=== PATIENT | female | born 1980 | race Caucasian/White ===

== ENCOUNTER 2018-03-19 10:07 | Emergency (ER) | payer OTHER ==
[2018-03-19 10:14] VITALS: BP 129/67; PULSE 108; RESP 20; TEMP 98.8
--- NOTE | 2018-03-19 10:48 | ED ---
General Adult HPI - General Chief complaint: Skin/Abscess/Foreign Body Stated complaint: Female Time Seen by Provider: 03/19/18 10:27 Source: patient, family, RN notes reviewed Mode of arrival: ambulatory Limitations: no limitations - History of Present Illness Initial comments: Patient is a pleasant 37-year-old female presenting to the emergency department with concern for possible abscess. Patient states she did see her doctor 2 days ago and was told it was hemorrhoids and prescribed antibiotics. Patient was prescribed Augmentin however has not had it filled yet. Patient states she is not convinced it is hemorrhoids causing her pain. Discomfort increases with movement. Patient believes she had a fever 2 days ago. No history of similar symptoms previously. - Related Data Previous Rx's Medication Instructions Recorded Acetaminophen-Codeine 300-30mg 2 each PO Q4H PRN #15 tablet 03/19/18 [Tylenol #3] Clindamycin HCl 300 mg PO QID #40 cap 03/19/18 Allergies Allergy/AdvReac Type Severity Reaction Status Date / Time ibuprofen [From Motrin] Allergy Anaphylaxis Verified 03/19/18 10:39 latex Allergy Unknown Verified 03/19/18 10:14 Sulfa (Sulfonamide Allergy Unknown Verified 03/19/18 10:14 Antibiotics) Review of Systems ROS Statement: Those systems with pertinent positive or pertinent negative responses have been documented in the HPI. ROS Other: All systems not noted in ROS Statement are negative. Constitutional: Reports: fever, chills Eyes: Denies: eye pain ENT: Denies: ear pain Respiratory: Denies: cough Cardiovascular: Denies: chest pain Endocrine: Denies: fatigue Gastrointestinal: Denies: abdominal pain Genitourinary: Denies: dysuria Musculoskeletal: Denies: back pain Skin: Denies: pruritus Past Medical History Additional Past Medical History / Comment(s): Hepatitis C History of Any Multi-Drug Resistant Organisms: None Reported Past Surgical History: Cholecystectomy Past Psychological History: No Psychological Hx Reported Smoking Status: Former smoker Past Alcohol Use History: Occasional Past Drug Use History: None Reported General Exam Limitations: no limitations General appearance: alert, in no apparent distress Head exam: Present: atraumatic Eye exam: Present: normal appearance Neck exam: Present: normal inspection Respiratory exam: Present: normal lung sounds bilaterally Cardiovascular Exam: Present: regular rate, normal rhythm GI/Abdominal exam: Present: soft. Absent: tenderness External exam: Present: other (Left lateral inferior to the labia with minimal fullness. There is tenderness. No significant erythema. RN Dilia is present. ) Neurological exam: Present: alert Psychiatric exam: Present: normal affect, normal mood Skin exam: Present: normal color. Absent: rash Course Vital Signs 03/19/18 10:11 Temperature 98.8 F Pulse Rate 108 H Respiratory 20 Rate Blood Pressure 129/67 O2 Sat by Pulse 98 Oximetry Medical Decision Making - Medical Decision Making Area of concern is likely early Bartholin's cyst or abscess. Area is not large enough to benefit from I&D at this time. Patient is advised of this and need for drainage if symptoms get worse or increased swelling. Patient has not started Augmentin. It is felt with possibility of MRSA patient should likely be on Bactrim or clindamycin. Patient however does have a sulfa ALLERGY. Patient does request pain medication. Disposition Clinical Impression: Bartholin's gland abscess Disposition: HOME SELF-CARE Condition: Stable Instructions: Abscess (ED), Bartholin Cyst (ED) Additional Instructions: Please follow-up with primary care physician or PRE ALGEBRA TEACHER in the next day or 2 for recheck. Return for fevers, redness, increased swelling, increased pain, worsening or changing symptoms or other concerns. Prescriptions: Acetaminophen-Codeine 300-30mg [Tylenol #3] 2 each PO Q4H PRN #15 tablet PRN Reason: Pain Clindamycin HCl 300 mg PO QID #40 cap Is patient prescribed a controlled substance at d/c from ED?: Yes When asked, does pt state using other controlled substances?: No Referrals: Raudel Cox MD [Primary Care Provider] - 1-2 days Time of Disposition: 10:51
== END 2018-03-19 11:01 | disposition home or self-care (01) ==
LOC: EC 10:07
DX: N75.1 Abscess of Bartholin's gland (principal); Z87.891 Personal history of nicotine dependence; Z88.6 Allergy status to analgesic agent; Z91.040 Latex allergy status; Z88.2 Allergy status to sulfonamides
CPT/HCPCS: 99283

== ENCOUNTER 2018-03-24 14:11 | Emergency (ER) | payer OTHER ==
[2018-03-24 14:22] VITALS: RESP 18; TEMP 99
[2018-03-24] MEDS ORDERED: MORPHINE SULFATE 4 MG/ML SYRINGE IV STA (14:43)
[2018-03-24] MEDS ORDERED: SODIUM CHLORIDE 0.9% 1,000 ML IV SCH (14:45)
[2018-03-24] MEDS ORDERED: ceFAZolin 1,000 MG in DEXTROSE/WATER 1 50ML.BAG IVPB STA (14:45)
[2018-03-24] MEDS ORDERED: SODIUM CHLORIDE 0.9% 500 ML IV ONE (14:45)
--- NOTE | 2018-03-24 14:51 | ED ---
Skin/Abscess/FB HPI - General Chief complaint: Skin/Abscess/Foreign Body Stated complaint: Cyst Time Seen by Provider: 03/24/18 14:33 Source: patient Mode of arrival: ambulatory Limitations: no limitations - History of Present Illness Initial comments: 37 years old female living about 2. Rectal area ongoing for about a week now, swollen, its tender, it's painful she is unable to send her to even ambulate with the excruciating pain. She has been running low-grade fever as well denies any frequency urgency dysuria no vaginal discharge. Review of system is unremarkable otherwise - Related Data Home Medications Medication Instructions Recorded Confirmed Acetaminophen-Codeine 300-30mg 2 tab PO Q4H PRN 03/24/18 03/24/18 [Tylenol #3] Previous Rx's Medication Instructions Recorded Clindamycin HCl 300 mg PO QID #40 cap 03/19/18 Amoxicillin/Potassium Clav 1 tab PO Q12HR #20 tab 03/24/18 [Augmentin 875-125 Tablet] HYDROcodone/APAP 5-325MG [[place] 1 tab PO Q6HR PRN 3 Days #12 tab 03/24/18 5-325] Lactulose [Cephulac] 30 gm PO BID #300 ml 03/24/18 Allergies Allergy/AdvReac Type Severity Reaction Status Date / Time ibuprofen [From Motrin] Allergy Anaphylaxis Verified 03/24/18 14:39 latex Allergy Unknown Verified 03/24/18 14:39 Sulfa (Sulfonamide Allergy Unknown Verified 03/24/18 14:39 Antibiotics) Review of Systems ROS Statement: Those systems with pertinent positive or pertinent negative responses have been documented in the HPI. ROS Other: All systems not noted in ROS Statement are negative. Past Medical History Additional Past Medical History / Comment(s): Hepatitis C History of Any Multi-Drug Resistant Organisms: None Reported Past Surgical History: Cholecystectomy Past Psychological History: No Psychological Hx Reported Smoking Status: Former smoker Past Alcohol Use History: Occasional Past Drug Use History: None Reported General Exam - General Exam Comments Initial Comments: General: The patient is awake and alert, in moderate distress because of the pain Skin: Skin is warm warm, erythematous, indurated and very tender, is a perirectal abscess, Eye: Pupils are equal, round and reactive to light, extra-ocular movements are intact; there is normal conjunctiva bilaterally. Ears, nose, mouth and throat: There are moist mucous membranes and no oral lesions. Neck: The neck is supple, there is no tenderness or JVD. Cardiovascular: There is a regular rate and rhythm. No murmur, rub or gallop is appreciated. Respiratory: To auscultation bilateral, no wheezing no rhonchi no distress respiratory moore noticed Gastrointestinal: Soft, non-distended, non-tender abdomen without masses or organomegaly noted. There is no rebound or guarding present. Bowel sounds are unremarkable. Back: There is no tenderness to palpation in the midline. There is no obvious deformity. Musculoskeletal: Normal ROM, no tenderness, There is no pedal edema. There is no calf tenderness or swelling. No cords were appreciated. Neurological: CN II-XII intact, Cranial nerves III through XII are intact. There are no obvious motor or sensory deficits. Coordination appears grossly intact. Speech is normal. Psychiatric: Cooperative, appropriate mood & affect, normal judgment. Limitations: no limitations Course Vital Signs 03/24/18 14:20 Temperature 99.0 F Pulse Rate 130 H Respiratory 18 Rate Blood Pressure 110/86 O2 Sat by Pulse 98 Oximetry Reassessed at 1600, CBC is normal heart rate has dropped down to 75 she still a lot of pain unfortunately can't use any anti-inflammatories and she is ALLERGIC to Motrin she be given some Tylenol 1 g by mouth now along with the morphine we did aspirate about 10 mL of pus should be gone home on Augmentin 1 g twice daily for next 10 days she be referred to Dr. horn for follow-up in case she needs more extensive incision and drainage of the perirectal abscess Medical Decision Making - Lab Data Result diagrams: 03/24/18 15:23 03/24/18 15:23 Lab Results 03/24/18 03/24/18 Range/Units 15:23 15:23 WBC 8.8 (3.8-10.6) k/uL RBC 4.06 (3.80-5.40) m/uL Hgb 13.6 (11.4-16.0) gm/dL Hct 38.6 (34.0-46.0) % MCV 95.0 (80.0-100.0) fL MCH 33.6 (25.0-35.0) pg MCHC 35.3 (31.0-37.0) g/dL RDW 12.9 (11.5-15.5) % Plt Count 383 (150-450) k/uL Neutrophils % 79 % Lymphocytes % 13 % Monocytes % 5 % Eosinophils % 2 % Basophils % 0 % Neutrophils # 7.0 (1.3-7.7) k/uL Lymphocytes # 1.1 (1.0-4.8) k/uL Monocytes # 0.5 (0-1.0) k/uL Eosinophils # 0.2 (0-0.7) k/uL Basophils # 0.0 (0-0.2) k/uL Sodium 143 (137-145) mmol/L Potassium 4.5 (3.5-5.1) mmol/L Chloride 105 (98-107) mmol/L Carbon Dioxide 22 (22-30) mmol/L Anion Gap 16 mmol/L BUN 10 (7-17) mg/dL Creatinine 0.63 (0.52-1.04) mg/dL Est GFR (CKD-EPI)AfAm >90 (>60 ml/min/1.73 sqM) Est GFR (CKD-EPI)NonAf >90 (>60 ml/min/1.73 sqM) Glucose 85 (74-99) mg/dL Calcium 9.3 (8.4-10.2) mg/dL Total Bilirubin 0.9 (0.2-1.3) mg/dL AST 53 H (14-36) U/L ALT 58 H (9-52) U/L Alkaline Phosphatase 83 (38-126) U/L Total Protein 7.0 (6.3-8.2) g/dL Albumin 4.0 (3.5-5.0) g/dL Disposition Clinical Impression: Loulou-rectal abscess Disposition: HOME SELF-CARE Condition: Good Instructions: Abscess (ED) Prescriptions: Amoxicillin/Potassium Clav [Augmentin 875-125 Tablet] 1 tab PO Q12HR #20 tab HYDROcodone/APAP 5-325MG [[place] 5-325] 1 tab PO Q6HR PRN 3 Days #12 tab PRN Reason: Pain Lactulose [Cephulac] 30 gm PO BID #300 ml Is patient prescribed a controlled substance at d/c from ED?: Yes When asked, does pt state using other controlled substances?: No If prescribed controlled substance>3 days was MAPS reviewed?: No If opioid is for acute pain is fill amount 7 days or less?: No If Rx opioid, was Start Talking consent form obtained?: No Referrals: Raudel Cox MD [Primary Care Provider] - 1-2 days
[2018-03-24 15:41] LABS: ALT 58 U/L (9-52); AST 53 U/L (14-36); Alkaline Phosphatase 83 U/L (38-126); Anion Gap 16 mmol/L; Blood Urea Nitrogen 10 mg/dL (7-17); Calcium 9.3 mg/dL (8.4-10.2); Carbon Dioxide 22 mmol/L (22-30); Chloride 105 mmol/L (98-107); Glucose 85 mg/dL (74-99); Potassium 4.5 mmol/L (3.5-5.1); Sodium 143 mmol/L (137-145); Total Bilirubin 0.9 mg/dL (0.2-1.3)
[2018-03-24 15:45] LABS: Basophils % (A) 0 %; Eosinophils # (A) 0.2 k/uL (0-0.7); Eosinophils % (A) 2 %; HCT 38.6 % (34.0-46.0); HGB 13.6 gm/dL (11.4-16.0); Lymphocytes # (A) 1.1 k/uL (1.0-4.8); Lymphocytes % (A) 13 %; MCH 33.6 pg (25.0-35.0); MCHC 35.3 g/dL (31.0-37.0); Mean Platelet Volume 6.6; Monocytes # (A) 0.5 k/uL (0-1.0); Monocytes % (A) 5 %; Neutrophils % (A) 79 %; Platelet Count 383 k/uL (150-450); RBC 4.06 m/uL (3.80-5.40); RDW 12.9 % (11.5-15.5); WBC 8.8 k/uL (3.8-10.6)
[2018-03-24] MEDS ORDERED: ACETAMINOPHEN TAB 500 MG TAB PO STA (16:08)
[2018-03-24 16:10] VITALS: BP 125/60; PULSE 74
[2018-03-24] MEDS ORDERED: MORPHINE SULFATE 4 MG/ML SYRINGE IVP STA (16:10)
--- NOTE | 2018-03-25 02:35 | CDI ---
Documentation Clarification OP Dear Jb LOVE MD Please do addendum to ED report for Aspiration procedure of rectal abscess. Thank you, Juanita Joyner Refinery Superintendent If you have any question, Please contact farm operations manager at [phone] mtdD
[2018-03-25 20:50] LABS: Hepatitis B Core IgM Non-Reactive (Non-Reactive)
== END 2018-03-24 16:46 | disposition home or self-care (01) ==
LOC: EC 14:11
DX: K61.1 Rectal abscess (principal); Z86.19 Personal history of other infectious and parasitic diseases; Z87.891 Personal history of nicotine dependence; Z88.6 Allergy status to analgesic agent; Z88.2 Allergy status to sulfonamides; Z91.040 Latex allergy status
CPT/HCPCS: 99283; 10160; 96365; 96375; 96376; 96361; 36415; 80053; 80074; 85025; 87070; 87205; 87077; 87186; J2270; J0690

== ENCOUNTER 2018-03-25 20:18 | Inpatient (IN) | payer OTHER ==
[2018-03-25] MEDS ORDERED: metroNIDAZOLE-NS PMX 500 MG in SALINE 1 100ML.BAG IVPB STA (21:58)
[2018-03-25] MEDS ORDERED: LEVOFLOXACIN 750MG-D5W PMX 750 MG in DEXTROSE/WATER 1 150ML.BAG IVPB STA (21:58)
[2018-03-25] MEDS ORDERED: VANCOMYCIN IV PER PHARMACY 1 EACH MISC MISCELLANE PRN (21:58)
[2018-03-25 22:06] LABS: Basophils % (A) 0 %; Eosinophils # (A) 0.2 k/uL (0-0.7); Eosinophils % (A) 1 %; HGB 13.3 gm/dL (11.4-16.0); Lymphocytes # (A) 0.8 k/uL (1.0-4.8); Lymphocytes % (A) 6 %; MCH 32.8 pg (25.0-35.0); MCHC 34.9 g/dL (31.0-37.0); MCV 94.1 fL (80.0-100.0); Mean Platelet Volume 6.6; Monocytes # (A) 0.5 k/uL (0-1.0); Monocytes % (A) 4 %; Neutrophils # (A) 11.8 k/uL (1.3-7.7); Neutrophils % (A) 88 %; Platelet Count 364 k/uL (150-450); RBC 4.04 m/uL (3.80-5.40); WBC 13.4 k/uL (3.8-10.6)
[2018-03-25] MEDS ORDERED: VANCOMYCIN 1,750 MG in SODIUM CHLORIDE 0.9% 250 ML IVPB STA (22:16)
[2018-03-25 22:18] LABS: ALT 59 U/L (9-52); AST 43 U/L (14-36); Albumin 4.1 g/dL (3.5-5.0); Alkaline Phosphatase 84 U/L (38-126); Anion Gap 16 mmol/L; Blood Urea Nitrogen 9 mg/dL (7-17); Calcium 9.4 mg/dL (8.4-10.2); Carbon Dioxide 22 mmol/L (22-30); Chloride 104 mmol/L (98-107); Glucose 97 mg/dL (74-99); Potassium 4.4 mmol/L (3.5-5.1); Sodium 142 mmol/L (137-145); Total Bilirubin 1.1 mg/dL (0.2-1.3); Total Protein 7.3 g/dL (6.3-8.2)
[2018-03-25] MEDS ORDERED: MORPHINE SULFATE 4 MG/ML SYRINGE IVP STA (22:18)
[2018-03-25] MEDS ORDERED: RX INFO: IV CONTRAST WAS GIVEN 1 EACH MISC MISCELLANE PRN (22:18)
--- NOTE | 2018-03-25 22:24 | ED ---
Skin/Abscess/FB HPI - General Chief complaint: Skin/Abscess/Foreign Body Stated complaint: Abscess Time Seen by Provider: 03/25/18 21:38 Source: patient, RN notes reviewed Mode of arrival: ambulatory Limitations: no limitations - History of Present Illness Initial comments: This is a 37-year-old female who presents to the emergency department with chief complaint of abscess. Patient states that she was evaluated yesterday here at the emergency department for an abscess in her genital area. She states that it was drained by Dr. Francois. She states she was diagnosed with a perianal abscess. She states that she was started on Augmentin antibiotic and has taken 3 doses so far. She states that since yesterday the abscess has grown 3 times in size. She states that she has developed fevers, chills and nausea. She states that the pain is intense. She states that she is hoping to be admitted because she has been evaluated for times by different providers and the abscess continues to progress in size and pain. Denies chest pain or shortness of breath, abdominal pain, diarrhea or constipation. - Related Data Home Medications Medication Instructions Recorded Confirmed Acetaminophen-Codeine 300-30mg 2 tab PO Q4H PRN 03/24/18 03/25/18 [Tylenol #3] Lactulose [Cephulac] 30 gm PO BID 03/25/18 03/25/18 Previous Rx's Medication Instructions Recorded Amoxicillin/Potassium Clav 1 tab PO Q12HR #20 tab 03/24/18 [Augmentin 875-125 Tablet] HYDROcodone/APAP 5-325MG [[place] 1 tab PO Q6HR PRN 3 Days #12 tab 03/24/18 5-325] Allergies Allergy/AdvReac Type Severity Reaction Status Date / Time ibuprofen [From Motrin] Allergy Anaphylaxis Verified 03/25/18 22:13 latex Allergy Unknown Verified 03/25/18 22:13 Sulfa (Sulfonamide Allergy Unknown Verified 03/25/18 22:13 Antibiotics) Review of Systems ROS Statement: Those systems with pertinent positive or pertinent negative responses have been documented in the HPI. ROS Other: All systems not noted in ROS Statement are negative. Past Medical History Past Medical History: No Reported History Additional Past Medical History / Comment(s): Hepatitis C History of Any Multi-Drug Resistant Organisms: None Reported Past Surgical History: Cholecystectomy Past Psychological History: No Psychological Hx Reported Smoking Status: Former smoker Past Alcohol Use History: Occasional Past Drug Use History: None Reported General Exam - General Exam Comments Initial Comments: General: Awake and alert, well-developed; in no apparent distress. HEENT: Head atraumatic, normocephalic. Pupils are equal, round and reactive to light. Extraocular movements intact. Oropharynx moist without erythema or exudate. Neck: Supple. Normal ROM. Cardiovascular: Regular rate and rhythm. No murmurs, rubs or gallops. Chest symmetrical. Respiratory: Lungs clear to auscultation bilaterally. No wheezes, rales or rhonchi. Normal respiratory effort with no use of accessory muscles. Abdomen: Soft, non-tender, non-distended. No rigidity, rebound or guarding. Normal bowel sounds in all 4 quadrants. Musculoskeletal: Normal ROM, no tenderness bilateral upper and lower extremities. Skin: Nathalie, warm and dry without rashes or lesions. Neurological: Alert and oriented x3. CN II-XII grossly intact. Speech is fluent and answers are appropriate. No focal neuro deficits. Psychiatric: Normal mood and affect. No overt signs of depression or anxiety noted. Limitations: no limitations Rectal exam: Present: other (area of erythema and induration extending from left labia majora to anus. exquisitely tender on palpation. ) Course Vital Signs 03/25/18 20:27 Temperature 101.4 F H Pulse Rate 140 H Respiratory 20 Rate Blood Pressure 111/67 O2 Sat by Pulse 100 Oximetry Medical Decision Making - Medical Decision Making This is a 37-year-old female who presents to the emergency department with chief complaint of abscess. Patient had a perianal abscess drained yesterday here in the emergency department. Since that time she has developed a high- grade fever, tachycardia, fevers, chills and nausea. On presentation, patient was afebrile and tachycardic. On physical examination, there is a large area of induration, erythema and tenderness left labia majora/anal region. Patient started on Levaquin, Vanco and Flagyl. CBC revealed a white count of 13.4 with a left shift at 11.8. Computed tomography scan did reveal a complex fluid collection at the floor of the pelvis. Patient will be admitted to Dr. Hernandez for perianal abscess. Patient was made aware of findings and plan. She is in agreement for admission. All questions answered. - Lab Data Result diagrams: 03/25/18 21:57 03/25/18 21:57 Lab Results 03/25/18 03/25/18 03/25/18 Range/Units 21:57 21:57 21:57 WBC 13.4 H (3.8-10.6) k/uL RBC 4.04 (3.80-5.40) m/uL Hgb 13.3 (11.4-16.0) gm/dL Hct 38.0 (34.0-46.0) % MCV 94.1 (80.0-100.0) fL MCH 32.8 (25.0-35.0) pg MCHC 34.9 (31.0-37.0) g/dL RDW 13.0 (11.5-15.5) % Plt Count 364 (150-450) k/uL Neutrophils % 88 % Lymphocytes % 6 % Monocytes % 4 % Eosinophils % 1 % Basophils % 0 % Neutrophils # 11.8 H (1.3-7.7) k/uL Lymphocytes # 0.8 L (1.0-4.8) k/uL Monocytes # 0.5 (0-1.0) k/uL Eosinophils # 0.2 (0-0.7) k/uL Basophils # 0.0 (0-0.2) k/uL Sodium 142 (137-145) mmol/L Potassium 4.4 (3.5-5.1) mmol/L Chloride 104 (98-107) mmol/L Carbon Dioxide 22 (22-30) mmol/L Anion Gap 16 mmol/L BUN 9 (7-17) mg/dL Creatinine 0.70 (0.52-1.04) mg/dL Est GFR (CKD-EPI)AfAm >90 (>60 ml/min/1.73 sqM) Est GFR (CKD-EPI)NonAf >90 (>60 ml/min/1.73 sqM) Glucose 97 (74-99) mg/dL Plasma Lactic Acid Deric 0.8 (0.7-2.0) mmol/L Calcium 9.4 (8.4-10.2) mg/dL Total Bilirubin 1.1 (0.2-1.3) mg/dL AST 43 H (14-36) U/L ALT 59 H (9-52) U/L Alkaline Phosphatase 84 (38-126) U/L Total Protein 7.3 (6.3-8.2) g/dL Albumin 4.1 (3.5-5.0) g/dL - Radiology Data Radiology results: report reviewed CT abdomen and pelvis with contrast impression: Complex fluid collection at the floor of the pelvis on the left side consistent with perianal abscess or perivaginal abscess. This is seen in the subcutaneous tissues. This is below the urogenital diaphragm. Disposition Clinical Impression: Perianal abscess Disposition: ADMITTED IP TO THIS HOSP Condition: Stable Is patient prescribed a controlled substance at d/c from ED?: No Referrals: Raudel Cox MD [Primary Care Provider] - 1-2 days Time of Disposition: 23:24
--- NOTE | 2018-03-25 23:12 | CT ---
EXAMINATION TYPE: CT abdomen pelvis w con DATE OF EXAM: 03/25/2018 COMPARISON: 04/10/2011 HISTORY: Evaluate for perirectal abscess. CT DLP: 1713.2 mGycm Automated exposure control for dose reduction was used. TECHNIQUE: Helical acquisition of images was performed from the lung bases through the pelvis. CONTRAST: Performed without Oral Contrast and with IV Contrast, patient injected with 100 mL of Isovue 300. FINDINGS: The lung bases are clear. There is no pleural effusion. Liver spleen pancreas appear normal. There ar e clips from cholecystectomy. There is no adrenal mass. Kidneys show satisfactory contrast opacificat ion. There is no hydronephrosis. Ureters are not dilated. There is no retroperitoneal adenopathy. The re is no ascites. I see no intestinal wall thickening. There are no dilated loops. Bladder distends smoothly. Uterus is retroverted. I see no bony destructive process. There is no sign of free air. There is no sign of ap pendicitis. Appendix appears normal. Images at the floor of the pelvis show a 5 x 3 cm oval-shaped complex fluid collection on the left si de and inferior to the anus consistent with perianal abscess. There is a small air bubble anteriorly. IMPRESSION: COMPLEX FLUID COLLECTION AT THE FLOOR THE PELVIS ON THE LEFT SIDE CONSISTENT WITH PERIANAL ABSCESS OR PERIVAGINAL ABSCESS. THIS IS SEEN IN THE SUBCUTANEOUS TISSUES. THIS IS BELOW THE UROGENITAL DIAPHRA GM.
[2018-03-25] MEDS ORDERED: NALOXONE 0.4 MG/ML 1 ML VIAL IV PRN (23:24)
[2018-03-25] MEDS ORDERED: ACETAMINOPHEN TAB 500 MG TAB PO STA (23:41)
[2018-03-26 00:53] VITALS: BMI 37.5
[2018-03-26] MEDS: SODIUM CHLORIDE 0.9% 1,000 ML IV SCH ×2 (01:09→12:56)
[2018-03-26] MEDS: MORPHINE SULFATE 4 MG/ML SYRINGE IV PRN ×4 (03:56→22:01)
[2018-03-26] MEDS: metroNIDAZOLE-NS PMX 500 MG in SALINE 1 100ML.BAG IVPB SCH ×3 (05:34→22:02)
[2018-03-26] MEDS: ONDANSETRON 4 MG/2 ML VIAL IVP PRN (09:29)
[2018-03-26] MEDS: HYDROmorphone 0.5 MG/0.5 ML SYRINGE IVP STA (09:30)
--- NOTE | 2018-03-26 09:38 | P.GSHP ---
History of Present Illness H&P Date: 03/26/18 Chief Complaint: Left perirectal abscess This is a 37-year-old female with a one-week history of left perianal pain. Apparently she is seen in the emergency room's at [facility] 3 times over the last week. The patient states her pain worsened and she had increased swelling. She's been admitted to the hospital for treatment of a left perirectal abscess. Past Medical History Past Medical History: No Reported History Additional Past Medical History / Comment(s): Hepatitis C History of Any Multi-Drug Resistant Organisms: None Reported Past Surgical History: Section, Cholecystectomy Past Anesthesia/Blood Transfusion Reactions: No Reported Reaction Past Psychological History: No Psychological Hx Reported Smoking Status: Former smoker Past Alcohol Use History: Occasional Past Drug Use History: None Reported - Past Family History Father Family Medical History: No Reported History Medications and Allergies Home Medications Medication Instructions Recorded Confirmed Type Acetaminophen-Codeine 300-30mg 2 tab PO Q4H PRN 03/24/18 03/25/18 History [Tylenol #3] Amoxicillin/Potassium Clav 1 tab PO Q12HR #20 tab 03/24/18 03/25/18 Rx [Augmentin 875-125 Tablet] HYDROcodone/APAP 5-325MG [[place] 1 tab PO Q6HR PRN 3 Days #12 tab 03/24/18 Rx 5-325] Lactulose [Cephulac] 30 gm PO BID 03/25/18 03/25/18 History Allergies Allergy/AdvReac Type Severity Reaction Status Date / Time ibuprofen [From Motrin] Allergy Anaphylaxis Verified 03/25/18 22:13 latex Allergy Unknown Verified 03/25/18 22:13 Sulfa (Sulfonamide Allergy Unknown Verified 03/25/18 22:13 Antibiotics) Surgical - Exam Vital Signs Temp Pulse Resp BP Pulse Ox 101.4 F H 140 H 20 111/67 100 03/25/18 20:27 03/25/18 20:27 03/25/18 20:27 03/25/18 20:27 03/25/18 20:27 - General well developed, no distress - Eyes PERRL - ENT normal pinna - Neck no masses - Respiratory normal expansion - Cardiovascular Rhythm: regular - Abdomen Abdomen: soft, non tender - Rectum Left perirectal abscess with induration and swelling Results - Labs 03/25/18 21:57 03/25/18 21:57 Abnormal Lab Results - Last 24 Hours (Table) 03/25/18 03/25/18 Range/Units 21:57 21:57 WBC 13.4 H (3.8-10.6) k/uL Neutrophils # 11.8 H (1.3-7.7) k/uL Lymphocytes # 0.8 L (1.0-4.8) k/uL AST 43 H (14-36) U/L ALT 59 H (9-52) U/L Diabetes panel 03/25/18 Range/Units 21:57 Sodium 142 (137-145) mmol/L Potassium 4.4 (3.5-5.1) mmol/L Chloride 104 (98-107) mmol/L Carbon Dioxide 22 (22-30) mmol/L BUN 9 (7-17) mg/dL Creatinine 0.70 (0.52-1.04) mg/dL Glucose 97 (74-99) mg/dL Calcium 9.4 (8.4-10.2) mg/dL AST 43 H (14-36) U/L ALT 59 H (9-52) U/L Alkaline Phosphatase 84 (38-126) U/L Total Protein 7.3 (6.3-8.2) g/dL Albumin 4.1 (3.5-5.0) g/dL Calcium panel 03/25/18 Range/Units 21:57 Calcium 9.4 (8.4-10.2) mg/dL Albumin 4.1 (3.5-5.0) g/dL Pituitary panel 03/25/18 Range/Units 21:57 Sodium 142 (137-145) mmol/L Potassium 4.4 (3.5-5.1) mmol/L Chloride 104 (98-107) mmol/L Carbon Dioxide 22 (22-30) mmol/L BUN 9 (7-17) mg/dL Creatinine 0.70 (0.52-1.04) mg/dL Glucose 97 (74-99) mg/dL Calcium 9.4 (8.4-10.2) mg/dL Adrenal panel 03/25/18 Range/Units 21:57 Sodium 142 (137-145) mmol/L Potassium 4.4 (3.5-5.1) mmol/L Chloride 104 (98-107) mmol/L Carbon Dioxide 22 (22-30) mmol/L BUN 9 (7-17) mg/dL Creatinine 0.70 (0.52-1.04) mg/dL Glucose 97 (74-99) mg/dL Calcium 9.4 (8.4-10.2) mg/dL Total Bilirubin 1.1 (0.2-1.3) mg/dL AST 43 H (14-36) U/L ALT 59 H (9-52) U/L Alkaline Phosphatase 84 (38-126) U/L Total Protein 7.3 (6.3-8.2) g/dL Albumin 4.1 (3.5-5.0) g/dL Assessment and Plan Assessment: Left perirectal abscess. We'll perform incision and drainage.
[2018-03-26] MEDS: LIDOCAINE 1%-EPI 1:100,000 30 ML VIAL SQ ONE (10:24)
--- NOTE | 2018-03-26 10:27 | P.OP ---
Date of Procedure: 03/26/18 Preoperative Diagnosis: Left perianal abscess Postoperative Diagnosis: Left perianal abscess Procedure(s) Performed: Incision and drainage of left perianal abscess Anesthesia: local Surgeon: Humza Hernandez Pathology: other (Culture) Condition: stable Disposition: floor Description of Procedure: Patient's placed on the bed in the supine position. She was in the frog-leg position. The skin was prepped and draped usual sterile fashion. The area was anesthetized 1% local Xylocaine. Using a 18-gauge needle a small pus cavity was entered. 2 mL of purulent fluid was removed. There was no other pockets of pus aspirated. Patient top procedure well a.
[2018-03-26] MEDS: VANCOMYCIN 1,750 MG in SODIUM CHLORIDE 0.9% 250 ML IVPB SCH (12:55)
[2018-03-26] MEDS: ACETAMINOPHEN TAB 325 MG TAB PO PRN ×2 (14:59→20:36)
[2018-03-26] MEDS ORDERED: Acetaminophen-Codeine 300-30mg TAB PO PRN (18:05)
[2018-03-26] MEDS: PIPERACILLIN-TAZOBACTAM 3.375 GM in DEXTROSE/WATER 1 50ML.BAG IVPB SCH (18:18)
[2018-03-26 21:50] LABS: ALT 47 U/L (9-52); AST 31 U/L (14-36); Albumin 3.6 g/dL (3.5-5.0); Alkaline Phosphatase 72 U/L (38-126); Anion Gap 15 mmol/L; Blood Urea Nitrogen 6 mg/dL (7-17); Carbon Dioxide 22 mmol/L (22-30); Chloride 104 mmol/L (98-107); Glucose 111 mg/dL (74-99); Potassium 3.6 mmol/L (3.5-5.1); Sodium 141 mmol/L (137-145); Total Protein 6.4 g/dL (6.3-8.2)
[2018-03-26] MEDS: HEPARIN SODIUM,PORCINE 5,000 UNIT/ML 1 ML VIAL SQ SCH (22:01)
[2018-03-26] MEDS: LACTULOSE 20 GM/30 ML CUP PO SCH (22:02)
[2018-03-26] MEDS ORDERED: LEVOFLOXACIN 750MG-D5W PMX 750 MG in DEXTROSE/WATER 1 150ML.BAG IVPB SCH (23:00)
[2018-03-27] MEDS: PIPERACILLIN-TAZOBACTAM 3.375 GM in DEXTROSE/WATER 1 50ML.BAG IVPB SCH ×4 (00:36→23:23)
[2018-03-27] MEDS: VANCOMYCIN 1,750 MG in SODIUM CHLORIDE 0.9% 250 ML IVPB SCH ×2 (00:38→13:16)
[2018-03-27] MEDS: MORPHINE SULFATE 4 MG/ML SYRINGE IV PRN ×5 (01:47→20:06)
[2018-03-27] MEDS: SODIUM CHLORIDE 0.9% 1,000 ML IV SCH ×3 (02:25→16:53)
--- NOTE | 2018-03-27 02:52 | CONS ---
CONSULTATION DATE OF SERVICE: 03/26/2018 REASON FOR CONSULTATION: Left perianal abscess. HISTORY OF PRESENT ILLNESS: The patient is a 37-year-old female, apparently started having a problem with pain and swelling to the left perianal whole buttock area more describing to be a discomfort, uncomfortable especially when she was sitting down. Her symptoms started on Wednesday, March. The patient said that she for a few days, however, it did not improve. Hence, she went to the [facility] ER on Wednesday the 18 of March where the patient was diagnosed with possible hemorrhoid. Subsequently, seen in the [facility] ER the following Wednesday. The patient was diagnosed with possible Bartholin's cyst. At that time her pain was getting worse. She had been started on oral clindamycin. The patient's symptoms continued to get worse with significant pain. Hence, the patient has been evaluated at this ER on the where the patient did have a bedside drainage by the ER physician and the patient was discharged home. However, due to worsening symptoms, the patient was seen by her PCP the next day and advised to go back to the hospital. The patient has been seen by General surgery this morning who attempted to drain the area but just some blood came out, but no purulent material per the RN. I was asked to see the patient for further recommendation regarding antibiotic therapy. REVIEW OF SYSTEMS: CONSTITUTIONAL: Positive for weakness and she did have a fever of 101-103 Fahrenheit. EYES: No complaint. ENT: No complaint. RESPIRATORY: No complaint. CARDIOVASCULAR: No complaint. GENITOURINARY: No difficult urination. GASTROINTESTINAL: She complained of some lower abdominal pain, but no diarrhea. MUSCULOSKELETAL: No complaint. PSYCHOLOGICAL: No complaint. ENDOCRINE: No complaint. NEUROLOGIC: No complaint. PAST MEDICAL HISTORY: Hepatitis C. PAST SURGICAL HISTORY: Cholecystectomy. SOCIAL HISTORY: Remote history of smoking. Rarely drinks. No drug use. FAMILY HISTORY: . ALLERGIES: SULFA, IBUPROFEN. MEDICATION: Medications include the patient is currently on Flagyl, morphine sulfate, Narcan, Zofran, and vancomycin. EXAMINATION: Blood pressure is 115/53, pulse of 111 temperature 99.8, T-max 103. She is 100% on room air. GENERAL DESCRIPTION: Middle-aged female lying in bed in no distress. No tachypnea or accessory muscle of respiration use. HEENT: No pallor or scleral icterus. Oral mucosa is dry. NECK: Trachea central. No thyromegaly. LUNGS: Unlabored breathing, clear to auscultation anteriorly. No wheeze or crackle. HEART: S1, S2. Regular rate. ABDOMEN: Soft, tender lower quadrant area. No guarding or rigidity. Examination of the pelvic area shows a fluctuant area on the left perineal area which is slightly bruised, more like a blood-stained drainage. EXTREMITIES: No edema feet. SKIN: No rash or mass palpable. NEUROLOGIC: The patient is awake, alert. Mood and affect is normal. LABS: Hemoglobin is 13.2, white count 13.4, BUN of 9 creatinine 0.70. Electrolytes have been normal. Liver enzymes slightly elevated. The patient did have a CT of the abdomen and pelvis which shows complex fluid collection at the floor of the pelvis on the left side consistent with perianal abscess and perivaginal abscess. DIAGNOSTIC IMPRESSION AND PLAN: Patient with left perineal area abscess and perivaginal abscess in a patient who did have attempted drainage by the ER on the with culture showing gram-negative bacilli. The patient did have attempted bedside drainage today, no significant fluid came out. She may need to have an OR drainage, deep cultures in order to completely clear this infection. PLAN: 1. We will add Zosyn 3.7 gm p.o. q.8 hours in view of the gram-negative seen on the culture done on the and continue vanco while waiting for the condition to stabilize. 2. Gentle IV fluid. 3. Depending on clinical response as well as cultures, will adjust her medications further if needed. Thank you for this consultation. I will follow this patient along with you. MMODL / IJN: [id number] /
--- NOTE | 2018-03-27 04:00 | CONS ---
CONSULTATION REASON FOR CONSULTATION: Hepatitis C and other medical issues requested by Dr. Hernandez. HISTORY OF PRESENT ILLNESS: This 37-year-old woman with a history of hepatitis C, history of cholecystectomy, section, being followed by Dr. Cox in the outpatient setting was admitted with perianal abscess on the left side. The patient underwent incision and drainage of left perianal abscess by Dr. Hernandez. The patient running some high fever at this time. There is no history of any headache, loss of consciousness, seizures. PAST MEDICAL HISTORY: Hepatitis C, history of section, cholecystectomy. MEDICATIONS: Prior to admission include: 1. Cephalexin 10 mg p.o. b.i.d. 2. [place] 5 mg q.6h p.r.n. 3. Augmentin 875 mg p.o. b.i.d. 4. Tylenol #3 q.4h p.r.n. ALLERGIES: IBUPROFEN, LATEX, AND SULFA. FAMILY HISTORY: No history of heart disease or strokes family. SOCIAL HISTORY: Previous history of smoking. Occasional alcohol intake. REVIEW OF SYSTEMS: ENT: No diminished vision. No diminished hearing. Cardiovascular: No angina or palpitations. Respiratory: As mentioned earlier. GI no nausea. No vomiting. : No dysuria. Nervous system: No numbness, weakness. Allergy/Immunology: No asthma or hayfever. Musculoskeletal as mentioned earlier. Hematology/Oncology: No history of anemia. Endocrine: No history of diabetes or hypothyroidism. Constitutional: As mentioned earlier. Dermatology: Negative. Rheumatology: Negative. Psychiatry: As mentioned earlier. PHYSICAL EXAMINATION: GENERAL: Alert, oriented times three. VITAL SIGNS: Pulse 124, blood pressure 106/50, respiration 18, temp is 102, pulse ox 98% on room air. HEENT: Conjunctivae normal. Oral mucosa moist. NECK is no jugular venous distention. No carotid bruit. No thyroid enlargement. CARDIOVASCULAR: S1, S2. RESPIRATION: Breath sounds diminished at the bases. No rhonchi. No crackles. ABDOMEN: Soft, nontender. No mass palpable. Perianal abscess present. Status post incision and drainage. LEGS no edema and no swelling. NERVOUS SYSTEM: Higher functions as mentioned earlier. Moves all four limbs. No focal deficits. LYMPHATICS: No lymph nodes palpable in the neck, axillae or groin. SKIN: No ulcers, rashes or bleeding. LABS: WBC 13.4, AST is 43 and ALT 59. ASSESSMENT: 1. Left perianal abscess with possible sepsis present on admission status post incision and drainage. 2. Increased WBC. 3. Increased AST/ALT with chronic hepatitis C. 4. History of cholecystectomy. 5. History of section. 6. Remote history of nicotine dependence. RECOMMENDATIONS AND DISCUSSION: This 37-year-old woman who presented with multiple complex medical issues, we will monitor the patient closely, continue the current medications, management and symptomatic treatment. Otherwise at this time, we will initiate broad-spectrum IV antibiotics. Also recommend DVT prophylaxis and repeat labs. Guarded prognosis because of multiple complex medical issues. Further recommendations to follow. Thank you Dr. Hernandez, for letting us participate in the care of this patient. MMAMAYAL / LUISAN: [id number] /
[2018-03-27] MEDS: metroNIDAZOLE-NS PMX 500 MG in SALINE 1 100ML.BAG IVPB SCH ×3 (05:32→21:31)
[2018-03-27] MEDS: ACETAMINOPHEN TAB 325 MG TAB PO PRN ×2 (05:40→20:26)
[2018-03-27 07:01] LABS: Basophils % (A) 0 %; Eosinophils % (A) 0 %; HCT 35.2 % (34.0-46.0); HGB 12.2 gm/dL (11.4-16.0); Lymphocytes # (A) 0.9 k/uL (1.0-4.8); Lymphocytes % (A) 8 %; MCH 33.2 pg (25.0-35.0); MCHC 34.6 g/dL (31.0-37.0); MCV 96.1 fL (80.0-100.0); Mean Platelet Volume 6.7; Monocytes # (A) 0.4 k/uL (0-1.0); Monocytes % (A) 3 %; Neutrophils # (A) 10.2 k/uL (1.3-7.7); Neutrophils % (A) 88 %; Platelet Count 339 k/uL (150-450); RBC 3.67 m/uL (3.80-5.40); RDW 12.7 % (11.5-15.5); WBC 11.7 k/uL (3.8-10.6)
[2018-03-27 07:25] LABS: Anion Gap 13 mmol/L; Blood Urea Nitrogen 4 mg/dL (7-17); Calcium 8.6 mg/dL (8.4-10.2); Carbon Dioxide 21 mmol/L (22-30); Chloride 105 mmol/L (98-107); Glucose 112 mg/dL (74-99); Potassium 3.8 mmol/L (3.5-5.1); Sodium 139 mmol/L (137-145)
[2018-03-27] MEDS: LACTULOSE 20 GM/30 ML CUP PO SCH ×3 (08:14→20:10)
[2018-03-27] MEDS: HEPARIN SODIUM,PORCINE 5,000 UNIT/ML 1 ML VIAL SQ SCH ×3 (08:14→20:10)
[2018-03-27] MEDS: ONDANSETRON 4 MG/2 ML VIAL IVP PRN (08:34)
--- NOTE | 2018-03-27 09:01 | P.PN ---
Progress Note - Text Progress Note Date: 03/27/18 The patient's complaints of a headache. She states her perianal pain is stable. It is being well managed with pain medications. On exam her vital signs are stable. Pulse is 104. Examination perineum reveals stable left perianal induration. There has been no progression in size of the induration. Left perianal abscess. Patient can receive IV antibiotic. She'll be observed closely.
[2018-03-27] MEDS: HYDROcodone/APAP 5-325MG 1 EACH TAB PO PRN ×3 (10:30→23:21)
--- NOTE | 2018-03-27 16:50 | PN ---
PROGRESS NOTE DATE OF SERVICE: 03/27/2018. REASON FOR FOLLOWUP: Left perianal abscess. INTERVAL HISTORY: The patient overall fever pattern has improved and highest temperature has been 99.7 this morning compared to 102 and 103 on presentation and yesterday. However the patient continue to complaining of pain to the left perianal area about a steady 8, no worsening compared to yesterday. Feeling nauseated and decreased oral intake. No significant chest pain, shortness of breath or cough. Some lower abdominal pain though. EXAMINATION: Blood pressure 108/52 with a pulse of 104, temperature of 99.7, she is 96% on room air. General description is a middle-aged female lying in bed in no distress. Respiratory system: Unlabored breathing. Clear to auscultation anteriorly. Heart S1, S2. Regular rate and rhythm. ABDOMEN: Soft. No tenderness. Examination of the pelvic area in the presence of the RN did show slight area of swelling, discoloration and tenderness to the left perianal area. No drainage. LABS: White count 11.7 with a BUN of 4, creatinine 0.58. Cultures are currently showing a gram-negative. Cultures that were done on March 24 showing an E coli that is sensitive pathogen. DIAGNOSTIC IMPRESSION AND PLAN: Patient with left perianal abscess with attempted drainage yesterday. However, no significant pus could be expressed out. She did have a culture prior to that, which is currently showing an E coli and patient currently covered with the Zosyn that will be continued. If the patient persists and continued to have pain in the area and the swelling persists or any worse, recommend getting a CT abdomen and pelvic area to make sure that there is no evidence of any further abscess collection that may need to be drained out. Continue Zosyn at this point. Continue supportive care. MMODL / IJN: [id number] /
--- NOTE | 2018-03-27 18:29 | PN ---
PROGRESS NOTE DATE OF SERVICE: 03/27/2018 This 37-year-old woman was admitted with left perianal abscess with possible sepsis. Underwent incision and drainage by Dr. Hernandez. Cultures are showing gram-negative bacilli. No chest pain. No palpitations. Patient complains of headache at this time. PHYSICAL EXAM: Alert and oriented x3. Pulse 104, blood pressure 90/52, respiration 20, temp 99.7, pulse ox 98% room air. HEENT: Conjunctivae normal. Oral mucosa moist. NECK: No jugular venous distention. No lymph node enlargement. CARDIOVASCULAR: S1, S2. RESPIRATORY: Diminished breath sounds at the bases. No rhonchi, no crackles. ABDOMEN: Soft, nontender. LEGS: No swelling. NERVOUS SYSTEM: No focal deficits. LABORATORY DATA: WBC 11.2, hemoglobin 12.2. Lactic acid 2.6. ASSESSMENT: 1. Left perianal abscess with possible sepsis present on admission, status post incision and drainage with gram-negative bacilli. 2. Increased WBC. 3. Increased AST and ALT with chronic hepatitis A. 4. History of cholecystectomy. 5. History of section. 6. Remote history of nicotine dependence. RECOMMENDATIONS: Recommend to continue current management, continue symptomatic treatment. The patient is on IV Zosyn for which ID is following the patient closely. Cultures are as above. Continue the DVT prophylaxis. Continue the rest of the medications. Guarded prognosis. Further recommendations to follow. MMODL / IJN: [id number] /
[2018-03-28] MEDS: VANCOMYCIN 1,750 MG in SODIUM CHLORIDE 0.9% 250 ML IVPB SCH ×2 (03:23→16:10)
[2018-03-28] MEDS: MORPHINE SULFATE 4 MG/ML SYRINGE IV PRN ×4 (03:23→20:54)
[2018-03-28] MEDS: SODIUM CHLORIDE 0.9% 1,000 ML IV SCH ×2 (06:26→16:20)
[2018-03-28] MEDS: ONDANSETRON 4 MG/2 ML VIAL IVP PRN ×2 (06:32→16:18)
[2018-03-28] MEDS: HYDROcodone/APAP 5-325MG 1 EACH TAB PO PRN ×2 (06:32→23:08)
[2018-03-28] MEDS: metroNIDAZOLE-NS PMX 500 MG in SALINE 1 100ML.BAG IVPB SCH ×3 (06:33→21:15)
[2018-03-28] MEDS: LACTULOSE 20 GM/30 ML CUP PO SCH ×2 (07:17→20:53)
[2018-03-28] MEDS: HEPARIN SODIUM,PORCINE 5,000 UNIT/ML 1 ML VIAL SQ SCH ×2 (07:17→18:07)
[2018-03-28] MEDS: PIPERACILLIN-TAZOBACTAM 3.375 GM in DEXTROSE/WATER 1 50ML.BAG IVPB SCH ×3 (07:39→23:08)
[2018-03-28] MEDS ORDERED: LIDOCAINE 1%-EPI 1:100,000 30 ML VIAL SQ ONE (10:20)
[2018-03-28] MEDS ORDERED: LIDOCAINE 1%-EPI 1:100,000 20 ML VIAL SQ ONE (11:00)
[2018-03-28] MEDS: PANTOPRAZOLE 40 MG/10 ML VIAL IVP SCH ×2 (11:59→21:15)
[2018-03-28] MEDS ORDERED: HYDROmorphone 0.5 MG/0.5 ML SYRINGE IVP STA (12:17)
[2018-03-28] MEDS: HYDROmorphone 0.5 MG/0.5 ML SYRINGE IVP STA (12:20)
[2018-03-28] MEDS: LIDOCAINE 1%-EPI 1:100,000 30 ML VIAL SQ ONE (12:42)
[2018-03-28 13:44] LABS: Basophils % (A) 0 %; Eosinophils # (A) 0.1 k/uL (0-0.7); Eosinophils % (A) 1 %; HCT 35.1 % (34.0-46.0); HGB 11.9 gm/dL (11.4-16.0); Lymphocytes % (A) 13 %; MCH 32.6 pg (25.0-35.0); MCHC 33.9 g/dL (31.0-37.0); MCV 96.2 fL (80.0-100.0); Mean Platelet Volume 6.4; Monocytes # (A) 0.3 k/uL (0-1.0); Monocytes % (A) 4 %; Neutrophils # (A) 6.4 k/uL (1.3-7.7); Neutrophils % (A) 80 %; Platelet Count 367 k/uL (150-450); RBC 3.65 m/uL (3.80-5.40); RDW 12.5 % (11.5-15.5)
[2018-03-28 13:52] LABS: Anion Gap 14 mmol/L; Blood Urea Nitrogen 3 mg/dL (7-17); Calcium 8.5 mg/dL (8.4-10.2); Carbon Dioxide 22 mmol/L (22-30); Chloride 109 mmol/L (98-107); Glucose 105 mg/dL (74-99); Potassium 3.3 mmol/L (3.5-5.1); Sodium 145 mmol/L (137-145)
--- NOTE | 2018-03-28 14:05 | P.PN ---
Progress Note - Text Progress Note Date: 03/28/18 The patient's has complaints of nausea and not feeling well. Her cellulitis is actually extended sterilely. There is less swelling on her labia and more towards the left perirenal space. On exam the cellulitis has extended posteriorly as described above. There is less swelling of her labia. There is a small amount of purulent drainage. Left perirectal abscess. Patient will undergo incision and drainage.
--- NOTE | 2018-03-28 14:07 | P.OP ---
Date of Procedure: 03/28/18 Preoperative Diagnosis: Left perirectal abscess Postoperative Diagnosis: Left perirectal abscess Procedure(s) Performed: Incision and drainage Anesthesia: local Surgeon: Humza Hernandez Estimated Blood Loss (ml): 5 Pathology: none sent Condition: stable Disposition: PACU Description of Procedure: The patient's placed on her bed in the supine position. Her legs were frog legged. The perineum was prepped and draped usual sterile fashion. Using 1% local Xylocaine the skin was anesthetized in the left perianal area. Using a 15 blade the skin was incised a small amount. Fluid was removed. Patient tolerated the procedure well. Sterile dressing was applied.
--- NOTE | 2018-03-28 17:45 | PN ---
PROGRESS NOTE DATE OF SERVICE: 03/28/2018. REASON FOR FOLLOWUP: Left perianal abscess. INTERVAL HISTORY: The patient overall feels better and has improved with no fever recorded in last hours. The patient's pain is currently controlled with pain medication. The patient did have another attempted aspiration of the area by Dr. Hernandez with no purulent material removed. The patient denies significant chest pain, shortness of breath or cough. No abdominal pain, no worsening. EXAMINATION: Blood pressure 130/54 with a pulse of 79, temperature 98.4 she is 93% room air. GENERAL DESCRIPTION: A middle aged female lying in bed in no distress. RESPIRATORY SYSTEM: Unlabored breathing. Clear to auscultation anteriorly. HEART: S1, S2. Regular rate and rhythm. ABDOMEN: Left perianal area swelling and induration, slightly decreased. LABS: White count normalized to 8.0 with a BUN of 30, creatinine 0.30. Wound cultures predominantly with E coli. DIAGNOSTIC IMPRESSION AND PLAN: Patient with left perineal abscess. Culture has been E coli. As no gram-positive has been grown, we will discontinue the vancomycin. May benefit from a repeat CT scan tomorrow. discharge antibiotics. Continue supportive care. MMODL / IJN: [id number] /
[2018-03-28] MEDS: 0.9% NACL WITH KCL 40 MEQ/L 1,000 ML IV SCH (20:53)
--- NOTE | 2018-03-28 22:21 | PN ---
PROGRESS NOTE DATE OF SERVICE: 03/28/2018. This 37-year-old woman is admitted with perianal abscess with possible sepsis is being closely monitored. Patient on broad-spectrum IV antibiotics at this time. Dr. Francois is following the patient. Dr. Hernandez did incision and drainage today and fluid was removed and the patient was closely monitored. There is no history of fever, rigors. No history of headache, loss of consciousness, seizures at this time. The cultures showing E coli. PHYSICAL EXAM: Alert and oriented x3. Pulse 79, blood pressure 140/82, respiration 18, temperature 98.4, pulse ox 98% on room air. HEENT: Conjunctivae normal. Oral mucosa moist. NECK: No jugular venous distention. CARDIOVASCULAR: S1, S2. Respirations: Breath sounds diminished in the bases. No rhonchi and no crackles. ABDOMEN: Soft, nontender. No mass palpable. LEGS: No edema and no swelling. NERVOUS SYSTEM: Higher functions as mentioned earlier, no focal deficits. LYMPHATICS: No lymph nodes palpable in the neck, axillae or groin. SKIN: No ulcer, rash or bleeding. LABS: At this time potassium is 3.3. White count 8, hemoglobin 11.9. ASSESSMENT: 1. Left perianal abscess possible sepsis present on admission, status post incision and drainage with E coli. 2. Increased WBC. 3. Hypokalemia. 4. Increased AST/ALT with chronic hepatitis C. 5. History of cholecystectomy. 6. History of section. 7. History of nicotine dependence remotely. RECOMMENDATIONS AND DISCUSSION: I recommend to continue current medications, monitoring management and symptomatic treatment. Otherwise, at this time, I recommend continue IV antibiotics. Closely follow with Infectious Disease. Potassium supplementation and IV fluids and closely follow with Dr. Hernandez. Guarded prognosis. Further recommendations to follow. MMODL / IJN: [id number] /
[2018-03-29] MEDS: MORPHINE SULFATE 4 MG/ML SYRINGE IV PRN ×5 (02:52→23:35)
[2018-03-29] MEDS: HEPARIN SODIUM,PORCINE 5,000 UNIT/ML 1 ML VIAL SQ SCH ×3 (03:21→16:29)
[2018-03-29] MEDS: metroNIDAZOLE-NS PMX 500 MG in SALINE 1 100ML.BAG IVPB SCH (06:13)
[2018-03-29] MEDS: HYDROcodone/APAP 5-325MG 1 EACH TAB PO PRN ×2 (06:13→16:25)
[2018-03-29 07:07] LABS: Basophils % (A) 0 %; Eosinophils # (A) 0.1 k/uL (0-0.7); Eosinophils % (A) 2 %; HCT 36.2 % (34.0-46.0); HGB 12.2 gm/dL (11.4-16.0); Lymphocytes # (A) 1.1 k/uL (1.0-4.8); Lymphocytes % (A) 19 %; MCH 32.9 pg (25.0-35.0); MCHC 33.6 g/dL (31.0-37.0); MCV 98.1 fL (80.0-100.0); Mean Platelet Volume 6.3; Monocytes # (A) 0.2 k/uL (0-1.0); Monocytes % (A) 4 %; Neutrophils # (A) 4.4 k/uL (1.3-7.7); Neutrophils % (A) 73 %; Platelet Count 408 k/uL (150-450); Poikilocytosis Slight; RBC 3.69 m/uL (3.80-5.40); RDW 12.8 % (11.5-15.5); WBC 6.1 k/uL (3.8-10.6)
[2018-03-29 07:16] LABS: Anion Gap 14 mmol/L; Blood Urea Nitrogen 3 mg/dL (7-17); Calcium 8.6 mg/dL (8.4-10.2); Carbon Dioxide 22 mmol/L (22-30); Chloride 109 mmol/L (98-107); Glucose 97 mg/dL (74-99); Potassium 3.5 mmol/L (3.5-5.1); Sodium 145 mmol/L (137-145)
[2018-03-29] MEDS: PIPERACILLIN-TAZOBACTAM 3.375 GM in DEXTROSE/WATER 1 50ML.BAG IVPB SCH ×3 (08:46→23:36)
[2018-03-29] MEDS: ACETAMINOPHEN TAB 325 MG TAB PO PRN (08:47)
[2018-03-29] MEDS: PANTOPRAZOLE 40 MG/10 ML VIAL IVP SCH ×2 (08:47→22:00)
[2018-03-29] MEDS: ONDANSETRON 4 MG/2 ML VIAL IVP PRN (09:01)
[2018-03-29] MEDS: LACTULOSE 20 GM/30 ML CUP PO SCH ×2 (09:07→22:00)
--- NOTE | 2018-03-29 11:39 | CT ---
EXAMINATION TYPE: CT brain wo con DATE OF EXAM: 03/29/2018 COMPARISON: NONE HISTORY: Patient complains of headache. CT DLP: 867.8 mGycm. Automated Exposure Control for Dose Reduction was Utilized. TECHNIQUE: CT scan of the head is performed without contrast. FINDINGS: There is no acute intracranial hemorrhage, mass effect, or midline shift identified. The ventricles and sulci are within normal limits in size. CSF prominence posterior central aspect of th e posterior fossa seen best sagittal image 20 could reflect small arachnoid cyst. The globes are inta ct and the visualized sinuses are clear. IMPRESSION: No acute intracranial hemorrhage or midline shift is seen.
[2018-03-29] MEDS ORDERED: DOCUSATE 100 MG CAP PO PRN (12:43)
--- NOTE | 2018-03-29 12:43 | P.PN ---
Subjective Progress Note Date: 03/29/18 37-year-old female seen and examined. Patient is status post 28 of March incision and drainage of left perirectal abscess. There is a significant amount of tenderness to the surgical site no drainage. No increase in swelling from the reference site patient reports to develop a sensation of nausea this morning after receiving IV Flagyl and vancomycin patient stated that she did vomit clear secretions. Infectious disease recommends stopping Flagyl and vancomycin continue with the Zosyn as ordered Patients being followed by infectious disease wound culture E. coli blood culture negative white count is down 6.1 this morning admission white count 11.7 afebrile Objective - Vital Signs Vital signs: Vital Signs Temp 97.8 F 03/29/18 05:50 Pulse 63 03/29/18 08:55 Resp 18 03/29/18 08:55 BP 112/65 03/29/18 05:50 Pulse Ox 96 03/29/18 05:50 Intake & Output 03/28/18 03/29/18 03/29/18 18:59 06:59 18:59 Intake Total 1150 1500 Balance 1150 1500 Weight 105.5 kg 105.5 kg Intake: Intake, IV Titration 1150 900 Amount Piperacillin-Tazobactam 3 100 .375 gm In Dextrose/Water 1 50ml.bag @ 12.5 mls/hr IVPB Q8HR HEVER Rx#: [id number] Sodium Chloride 0.9% 1, 800 800 000 ml @ 100 mls/hr IV . Q10H HEVER Rx#:[id number] Vancomycin 1,750 mg In 250 Sodium Chloride 0.9% 250 ml @ 125 mls/hr IVPB Q12H HEVER Rx#:[id number] metroNIDAZOLE-NS PMX 500 100 mg In Saline 1 100ml.bag @ 100 mls/hr IVPB Q8H HEVER Rx#:[id number] Oral 600 Other: Voiding Method Toilet Toilet Toilet # Voids 2 1 - Exam GENERAL APPEARANCE: 37-year-old female patient patient reports a nausea sensation after receiving IV antibiotic Flagyl and ankle this morning did vomit VITAL SIGNS: Reviewed HEENT: Head is normocephalic and atraumatic. Pupils are equal and reactive. The nares are patent. Oropharynx is clear without lesions. NECK: Supple without lymphadenopathy. Traches midline. HEART: S1, S2. Regular rate and rhythm. LUNGS: No crackles or wheezes are heard. ABDOMEN: Soft, nontender, nondistended with good bowel sounds. No peritoneal signs. No palpable organomegaly or masses. states had a bowel movement this morning urinating no different Rectum left. A rectal area swollen tenderness to the touch no increase from reference markings EXTREMITIES: Normal skin color and turgor. No cyanosis, rash, ulceration, clubbing or edema. Radial pedal pulses are 2/4 bilaterally. NEUROLOGICAL: No focal deficits. Strength and sensation are grossly intact. - Labs CBC & Chem 7: 03/29/18 06:42 03/29/18 06:42 Labs: Abnormal Lab Results - Last 24 Hours (Table) 03/28/18 03/28/18 03/29/18 Range/Units 13:30 13:30 06:42 RBC 3.65 L (3.80-5.40) m/uL Potassium 3.3 L (3.5-5.1) mmol/L Chloride 109 H 109 H (98-107) mmol/L BUN 3 L 3 L (7-17) mg/dL Glucose 105 H (74-99) mg/dL 03/29/18 Range/Units 06:42 RBC 3.69 L (3.80-5.40) m/uL Potassium (3.5-5.1) mmol/L Chloride (98-107) mmol/L BUN (7-17) mg/dL Glucose (74-99) mg/dL Microbiology - Last 24 Hours (Table) 03/25/18 21:57 Blood Culture - Preliminary Blood No Growth after 72 hours 03/26/18 10:45 Gram Stain - Final Groin Wound Culture - Final Escherichia coli Assessment and Plan Assessment: Impression Present on admission perirectal pain failed outpatient treatment on Augmentin antibiotic Incision and drainage of a left perirectal abscess done on March 28 Wound cultures positive for E. coli Positive family history of perirectal abscess History of a cholecystectomy History of chronic hepatitis C Present on admission computed tomography scan of abdomen pelvis with contrast showed complex fluid collection at the floor of the pelvis on the left side consistent with a perianal abscess Plan continue recommendations per infectious disease IV antibiotics Pain control DVT and GI prophylaxis Follow-up on wound cultures wound care as ordered The above impression and plan of care have been discussed and directed by signing physician. Alissa Reid nurse practitioner acting as scribe for signing physician.
[2018-03-29] MEDS ORDERED: ACETAMINOPHEN IV (For NPO) 1,000 MG in EMPTY BAG 1 BAG IVPB PRN (13:01)
[2018-03-29] MEDS ORDERED: IOPAMIDOL-300 CONTRAST 30 ML VIAL (ORAL USE) PO PRN (13:21)
[2018-03-29] MEDS ORDERED: RX INFO: IV CONTRAST WAS GIVEN 1 EACH MISC MISCELLANE PRN (13:21)
[2018-03-29] MEDS: 0.9% NACL WITH KCL 40 MEQ/L 1,000 ML IV SCH (14:10)
--- NOTE | 2018-03-29 16:04 | CT ---
EXAMINATION TYPE: CT abdomen pelvis w con DATE OF EXAM: 03/29/2018 HISTORY: Perianal abscess progress study. CT DLP: 2147.0mGycm Automated Exposure Control for Dose Reduction was Utilized. CONTRAST: CT scan of the abdomen and pelvis is performed without oral but with IV Contrast, patient injected wi th 100 mL of Isovue 300. COMPARISON: CT abdomen and pelvis from 4 days ago FINDINGS: LUNG BASES: There are new tiny bilateral pleural effusions and associated compressive atelectasis. LIVER/GB: Liver remains diffusely low dense consistent with fatty infiltration. Cholecystectomy clips are redemonstrated. PANCREAS: No significant abnormality is seen. SPLEEN: No significant abnormality is seen. ADRENALS: No significant abnormality is seen. KIDNEYS: Delayed phased images sent to PACS do not extend through entire kidneys making evaluation sl ightly suboptimal. BOWEL: No suspicious small or large bowel dilatation. In the left perianal region there is redemonst ration of suspected tiny superior multiloculated irregular rim-enhancing fluid collection with larges t collection inferiorly measuring 3.2 x 2.0 cm axial image 100 diminished in size from prior study me asuring 5.0 x 2.8 cm axial image 100. Degree of surrounding inflammatory change extending inferiorly is stable or slightly improved. No new suspicious focal fluid collections are seen. UTERUS/ADNEXA: Retroverted uterus is redemonstrated. Tubal ligation clips in the adnexa are again see n. A few scattered pelvic phleboliths are seen. LYMPH NODES: No greater than 1cm abdominal or pelvic lymph nodes are appreciated. OSSEOUS STRUCTURES: Suspect transitional vertebra at lumbosacral junction as there is slight prominen ce of S1-S2 disc space. OTHER: There is stable small to moderate-sized fat-containing umbilical hernia. IMPRESSION: Improvement in left perianal fluid collection or abscess. No new suspicious findings iden tified.
--- NOTE | 2018-03-29 18:07 | PN ---
PROGRESS NOTE DATE OF SERVICE: 03/29/2018 This 37-year-old woman with a past medical history of multiple medical problems was admitted with left perianal abscess. The patient was on broad-spectrum IV antibiotics. The patient was complaining of some increased headache and vomiting also. A CT scan was ordered, which showed no acute abnormality at this time. No chest pain. No palpitations. No fever. PHYSICAL EXAM: Alert and oriented x3. Pulse is 63, blood pressure 112/64, respiration 18, temperature 97.8, pulse ox 98% on 2 L. HEENT: Conjunctivae normal. Oral mucosa moist. Neck is no jugular venous distention. CARDIOVASCULAR: S1, S2. RESPIRATORY: Breath sounds diminished in the bases. No rhonchi, no crackles. ABDOMEN: Soft, obese, nontender. LEGS: No edema, no swelling. NERVOUS SYSTEM: No focal deficits. LAB STUDIES: Hemoglobin 12.2. ASSESSMENT: 1. Left perianal abscess, possible sepsis present on admission, status post incision and drainage with Escherichia coli. 2. Increased white blood count. 3. Headache. 4. Hypokalemia. 5. Increased AST and ALT with chronic hepatitis C. 6. History of cholecystectomy. 7. History of section. 8. History of nicotine dependence remotely. RECOMMENDATIONS AND DISCUSSION: I recommend to continue current medications. Continue with monitoring and symptomatic treatment. Otherwise at this time continue with broad-spectrum IV antibiotics. CT scan as mentioned early. Guarded prognosis. Further recommendations to follow. MMODL / IJN: [id number] /
--- NOTE | 2018-03-29 18:22 | PN ---
PROGRESS NOTE DATE OF SERVICE: 03/29/2018 REASON FOR FOLLOWUP: Left perianal abscess. INTERVAL HISTORY: The patient is afebrile. Her main symptom currently has been having pain to the is currently controlled. Denies having any chest pain or shortness of breath or cough. Abdominal pain is mostly cramping associated to her menstrual cycle. EXAMINATION: Blood pressure is 112/65, pulse of 63, temperature 97.8. She is 96% on 2 L nasal cannula. General description is a middle-aged female lying in bed in no distress. RESPIRATORY SYSTEM: Unlabored breathing, clear to auscultation anteriorly. HEART: S1, S2. Regular rate and rhythm. ABDOMEN: Soft, no tenderness. The perianal area swelling and redness slightly decreased. LABS: White count of 6.1, BUN of 3, creatinine 0.59. DIAGNOSTIC IMPRESSION AND PLAN: Patient with left perianal abscess, status post attempted drainage. Currently on and will be continued. Will evaluate wound area tomorrow significant swelling. May repeat another CAT scan of the pelvic area. Continue supportive care. MMODL / IJN: [id number] /
[2018-03-29 22:19] VITALS: TEMP 98.2
[2018-03-30] MEDS: HEPARIN SODIUM,PORCINE 5,000 UNIT/ML 1 ML VIAL SQ SCH ×3 (01:00→16:16)
[2018-03-30] MEDS: HYDROcodone/APAP 5-325MG 1 EACH TAB PO PRN ×2 (04:03→13:03)
[2018-03-30 05:37] VITALS: BP 124/68; PULSE 72; RESP 16
[2018-03-30] MEDS: LACTULOSE 20 GM/30 ML CUP PO SCH (08:13)
[2018-03-30] MEDS: PANTOPRAZOLE 40 MG/10 ML VIAL IVP SCH (08:33)
[2018-03-30] MEDS: PIPERACILLIN-TAZOBACTAM 3.375 GM in DEXTROSE/WATER 1 50ML.BAG IVPB SCH ×2 (08:33→16:16)
[2018-03-30] MEDS: 0.9% NACL WITH KCL 40 MEQ/L 1,000 ML IV SCH (08:40)
[2018-03-30 09:26] LABS: Basophils % (A) 0 %; Eosinophils # (A) 0.1 k/uL (0-0.7); Eosinophils % (A) 2 %; HCT 35.1 % (34.0-46.0); HGB 11.9 gm/dL (11.4-16.0); Lymphocytes # (A) 1.3 k/uL (1.0-4.8); Lymphocytes % (A) 21 %; MCH 32.7 pg (25.0-35.0); MCHC 33.8 g/dL (31.0-37.0); MCV 96.7 fL (80.0-100.0); Mean Platelet Volume 6.9; Monocytes # (A) 0.3 k/uL (0-1.0); Monocytes % (A) 5 %; Neutrophils # (A) 4.2 k/uL (1.3-7.7); Neutrophils % (A) 69 %; Platelet Count 452 k/uL (150-450); Poikilocytosis Slight; RBC 3.63 m/uL (3.80-5.40); RDW 12.6 % (11.5-15.5)
[2018-03-30 09:35] LABS: Anion Gap 13 mmol/L; Blood Urea Nitrogen 3 mg/dL (7-17); Calcium 8.7 mg/dL (8.4-10.2); Carbon Dioxide 24 mmol/L (22-30); Chloride 107 mmol/L (98-107); Glucose 94 mg/dL (74-99); Sodium 144 mmol/L (137-145)
[2018-03-30] MEDS ORDERED: cefTRIAXone IN SWFI 2,000 MG/20 ML SYRINGE IVP STA (12:59)
--- NOTE | 2018-03-30 13:40 | P.DS ---
Providers Date of admission: 03/26/18 00:13 Expected date of discharge: 03/30/18 Attending physician: Humza Hernandez Consults: 03/26/18 10:27 Consult Physician Routine Consulting Provider: Cayden Francois Consult Reason/Comments: Left perineal abscess Do you want consulting provider notified?: Yes 03/26/18 18:06 Consult Physician Routine Consulting Provider: Padmini Porter Consult Reason/Comments: medical management Do you want consulting provider notified?: Yes Primary care physician: Brooke Galvez [facility] Course: 37-year-old female presented on the day of admission to the emergency room to be evaluated for chief complaint of developing pain in the left perianal area. Patient stated this been ongoing and did go to [facility] 3 times over the last week. Patient stated the pain became worse with increased swelling. Patient presented to the emergency room with the above-mentioned symptoms. Patient was admitted to the hospital and treated for a left perirectal abscess on March 26 the patient did undergo an incision and drainage of a left perianal abscess patient was followed by infectious disease Dr. Francois. IV antibiotics were initiated. CAT scan of the pelvic area showed a noted improvement in the abscess. The day of discharge there was increased drainage from the abscess. There was less swelling and less redness and less tenderness. Patient was afebrile. The white count was down to 6. Wound culture did show E. coli. Pain medication was effective for pain control patient was felt to be hemodynamically stable and appropriate to proceed with a discharge to home. Impression discharge diagnosis Wound culture from perianal abscess positive for E. coli Present on admission perirectal pain suspect due to abscess failed outpatient treatment on Augmentin antibiotic Incision and drainage of a left perirectal abscess done on March 28 Wound cultures positive for E. coli Positive family history of perirectal abscess History of a cholecystectomy History of chronic hepatitis C Present on admission computed tomography scan of abdomen pelvis with contrast showed complex fluid collection at the floor of the pelvis on the left side consistent with a perianal abscess The above impression and plan of care have been discussed and directed by signing physician. Alissa Reid nurse practitioner acting as scribe for signing physician. Patient Condition at Discharge: Stable Plan - Discharge Summary Discharge Rx Participant: Yes New Discharge Prescriptions: New metroNIDAZOLE [Flagyl] 500 mg PO TID #42 tab Continue Acetaminophen-Codeine 300-30mg [Tylenol w/codeine #3] 2 tab PO Q4H PRN PRN Reason: Pain HYDROcodone/APAP 5-325MG [[place] 5-325] 1 tab PO Q6HR PRN 3 Days #12 tab PRN Reason: Pain Lactulose [Cephulac] 30 gm PO BID Discontinued Amoxicillin/Potassium Clav [Augmentin 875-125 Tablet] 1 tab PO Q12HR #20 tab Discharge Medication List Acetaminophen-Codeine 300-30mg [Tylenol w/codeine #3] 2 tab PO Q4H PRN 03/24/18 [History] HYDROcodone/APAP 5-325MG [[place] 5-325] 1 tab PO Q6HR PRN 3 Days #12 tab [Rx] Lactulose [Cephulac] 30 gm PO BID 03/25/18 [History] metroNIDAZOLE [Flagyl] 500 mg PO TID #42 tab 03/30/18 [Rx] Follow up Appointment(s)/Referral(s): Raudel Cox MD [Primary Care Provider] - 04/06/18 1:20 pm Cayden Francois MD [STAFF PHYSICIAN] - 04/07/18 10:00 am (appt at [facility]) Humza Hernandez MD [STAFF PHYSICIAN] - 1 Week Activity/Diet/Wound Care/Special Instructions: pt set up at [facility] tomorrow 03/31/18 at 1:30pm for IV antibiotics infusion. please arrive 15min early for paperwork. Shower daily and after each bowel movement Do not sit in a tub of water no swimming pool or hot tub may use an ice pack to the area if needed No lifting over 10 pounds Discharge Disposition: HOME SELF-CARE
--- NOTE | 2018-03-30 15:19 | PN ---
PROGRESS NOTE DATE OF SERVICE: 03/30/2018 REASON FOR FOLLOWUP: Left perianal abscess. INTERVAL HISTORY: The patient is currently afebrile, her headache has improved. Patient's pain to the pelvic area has improved. Denies any chest pain, shortness of breath or cough. No abdominal pain or any diarrhea reported. PHYSICAL EXAMINATION: Blood pressure 124/68 with a pulse of 72, temperature 98.2, she is 98% on room air. General description is an elderly female, lying in bed in no distress. RESPIRATORY SYSTEM: Unlabored breathing, clear to auscultation anteriorly. HEART: S1, S2. Regular rate and rhythm. ABDOMEN: Soft, no tenderness Left perianal swelling, redness slightly decreased. LABS: Hemoglobin is 11.9, white count of 6.0, BUN of 3, creatinine 0.61. DIAGNOSTIC IMPRESSION AND PLAN: Patient with left perianal abscess. Repeat CT did show decrease in the size of the abscess. In view of extensive infection, I would recommend getting midline or outpatient IV antibiotic therapy in form of Rocephin 2 g daily along with oral Flagyl. Once antibiotics arranged, she can go home from ID standpoint. Continue supportive care. MMODL / IJN: [id number] /
--- NOTE | 2018-03-30 19:35 | P.PN ---
Subjective Progress Note Date: 03/30/18 Progress note. Dictated for Dr. Callahan Interval history: This a 37-year-old female admitted with left perianal abscess , possibly sepsis, status post attempted I&D with E. coli and multiple other medical issues. Maintained on broad-spectrum IV antibiotics as per infectious disease. Headache subsided, denies nausea or vomiting. Tolerating diet. Repeat CT reported decrease in abscess size. Left perianal swelling, decreasing redness reported. Pain controlled. Denies chest pain, palpitations or increasing shortness of breath. Afebrile. Patient is eager for discharge home. Objective - Vital Signs Vital signs: Vital Signs Temp 98.2 F 03/30/18 05:37 Pulse 72 03/30/18 08:00 Resp 16 03/30/18 08:00 BP 124/68 03/30/18 05:37 Pulse Ox 98 03/30/18 05:37 Intake & Output 03/29/18 03/30/18 03/30/18 18:59 06:59 18:59 Intake Total 470 690 470 Balance 470 690 470 Weight 105.5 kg Intake: Intake, IV Titration 470 690 470 Amount 0.9% NaCl with KCl 40 Meq 420 690 420 /l 1,000 ml @ 60 mls/hr IV .[id number] HEVER Rx#: [id number] Piperacillin-Tazobactam 3 50 50 .375 gm In Dextrose/Water 1 50ml.bag @ 12.5 mls/hr IVPB Q8HR HEVER Rx#: [id number] Other: Voiding Method Toilet Toilet Toilet # Voids 1 - Exam PHYSICAL EXAM: VITAL SIGNS: As above GENERAL: Sitting up in bed, no acute distress HEENT: Conjunctivae normal. eyes normal. Oral conjunctivae normal NECK: No JVD. No thyroid enlargement. No LNs CARDIOVASCULAR: S1, S2 muffled. No murmur RESPIRATION: Breath sounds diminished in the bases. No rhonchi or crackles. No bronchial breathing. ABDOMEN: Soft, nontender . No guarding. no masses palpable.Bowel sounds heard. LEGS: No edema. no swelling PSYCHIATRY: Alert and oriented -3, mood and affect normal. NERVOUS SYSTEM: Cranial N 2-12 grossly normal. Moves all 4 limbs. No focal deficits. - Labs CBC & Chem 7: 03/30/18 08:38 03/30/18 08:38 Labs: Abnormal Lab Results - Last 24 Hours (Table) 03/30/18 03/30/18 Range/Units 08:38 08:38 RBC 3.63 L (3.80-5.40) m/uL Plt Count 452 H (150-450) k/uL BUN 3 L (7-17) mg/dL Microbiology - Last 24 Hours (Table) 03/25/18 21:57 Blood Culture - Preliminary Blood No Growth after 96 hours Assessment and Plan Assessment: 1. Left. Anal abscess, possible sepsis present on admission, status post attempted I&D with E. coli 2. Chronic hepatitis C Plan: Continue on current medication regime ,monitoring and symptomatic treatment. Patient is being discharged home today as per surgery. Antibiotics as per infectious disease. Follow-up with PCP in 3 days with CBC, BMP. The impression and plan of care has been dictated as directed. : I performed a history and examination of this patient, discussed the same with the dictator. I agree with the dictator's note ,documented as a scribe. Any additional findings or plans will be noted.
--- NOTE | 2018-03-31 16:10 | CDI ---
Documentation Clarification Form Date: 03/31/2018 12:00:00 AM From: KURT Kirkpatrick; Rosemary [facility] Edge Cutter Phone: If you have a question about this query, please contact Rosemary [employer] Cutter at [phone] between 8am and 5pm. Admit Date: 03/26/2018 12:13:00 AM Patient Name: Leighann Ag Visit Number: [id number] Discharge Date: 03/30/2018 ATTENTION: The Clinical Documentation Specialists (CDI) and [facility] Coding Staff appreciate your assistance in clarifying documentation. Please respond to the clarification below the line at the bottom and electronically sign. The CDI & [facility] Coding staff will review the response and follow-up if needed. Please note: Queries are made part of the Legal Health Record. If you have any questions, please contact the author of this message via ITS. Dr. Padmini Porter The patient presented with perianal abscess. Incision & drainage was performed x 2. Vitals in the ED included temp 101.4, pulse 140, resp 20, BP 111/67 and WBC 13.4 with left shift at 11.8 She was started on Levaquin, Vanco and Flagyl. Possible sepsis is documented in the record but not carried to the discharge summary. In your professional opinion, please clarify if these findings signify one of the following: Sepsis ruled in Sepsis ruled out Other, please specify Unable to determine Unable to determine MTDD
== END 2018-03-30 16:48 | disposition home or self-care (01) | DRG 348 ==
LOC: EC 20:18 → 5MS5E 03-26 00:13
PROVIDERS: ADMIT Surgery; ATTEND Surgery
PROC: 0D9Q0ZZ Drainage of Anus, Open Approach (ICD-10-PCS; principal; 2018-03-26)
PROC: 0D9Q0ZZ Drainage of Anus, Open Approach (ICD-10-PCS; 2018-03-28)
DX: K61.2 Anorectal abscess (principal); L02.215 Cutaneous abscess of perineum; B18.2 Chronic viral hepatitis C; E87.6 Hypokalemia; Z87.891 Personal history of nicotine dependence; Z90.49 Acquired absence of other specified parts of digestive tract; Z79.891 Long term (current) use of opiate analgesic; Z79.899 Other long term (current) drug therapy; Z88.2 Allergy status to sulfonamides; Z88.6 Allergy status to analgesic agent; Z91.040 Latex allergy status; B96.20 Unspecified Escherichia coli [E. coli] as the cause of diseases classified elsewhere
CPT/HCPCS: 0; 36415; 70450; 74177; 80048; 80053; 80202; 83605; 85025; 87040; 87070; 87077; 87186; 87205; 96365; 96368; 96375; 99284

== ENCOUNTER 2018-04-14 04:16 | Emergency (ER) | payer OTHER ==
[2018-04-14 04:31] VITALS: RESP 18
[2018-04-14] MEDS ORDERED: MORPHINE SULFATE 2 MG/ML SYRINGE IV STA (04:53)
[2018-04-14] MEDS ORDERED: LEVOFLOXACIN 750MG-D5W PMX 750 MG in DEXTROSE/WATER 1 150ML.BAG IVPB STA (04:55)
--- NOTE | 2018-04-14 05:23 | ED ---
Skin/Abscess/FB HPI - General Chief complaint: Skin/Abscess/Foreign Body Stated complaint: female gu Time Seen by Provider: 04/14/18 04:22 Source: patient Mode of arrival: ambulatory Limitations: no limitations - History of Present Illness Initial comments: Patient is a 37-year-old woman who presents to be evaluated for concerns that she is having a recurrence of a left perianal abscess. Patient had been admitted to the hospital here on the morning of 03/26. She had the previous abscess lanced on 03/28, and then had further antibiotic therapy and was discharged on 03/31, with a PICC line. She had course of outpatient antibiotics being treated for E. coli. She states that she was having steady improvement, and then noted that one to 2 days ago she was getting a little bit of tenderness and swelling. This Progressively worse over the course yesterday and she comes to be evaluated. The patient is not having systemic symptoms, including no fever or chills, no palpitations, no syncope, lightheadedness or other symptoms. MD complaint: abscess/boil Onset/Timin -: days(s) Tetanus Up to Date: yes Location: buttocks Severity: moderate Quality: aching Consistency: constant Improves with: none Worsens with: palpation Associated symptoms: denies other symptoms - Related Data Previous Rx's Medication Instructions Recorded HYDROcodone/APAP 5-325MG [[place] 1 tab PO Q6HR PRN 3 Days #12 tab 03/24/18 5-325] cefTRIAXone [Rocephin] 2,000 mg IVP Q24HR #14 ml 03/30/18 metroNIDAZOLE [Flagyl] 500 mg PO TID #42 tab 03/30/18 Ciprofloxacin HCl [Cipro] 500 mg PO Q12HR #14 tablet 04/14/18 Famotidine [Pepcid] 20 mg PO DAILY #14 tablet 04/14/18 Ondansetron Odt [Zofran ODT] 4 mg PO Q8HR PRN #10 tab 04/14/18 Allergies Allergy/AdvReac Type Severity Reaction Status Date / Time ibuprofen [From Motrin] Allergy Severe Anaphylaxis Verified 04/06/18 14:18 Sulfa (Sulfonamide Allergy Severe Dyspnea Verified 04/06/18 14:18 Antibiotics) latex Allergy Intermediate Rash/Hives Verified 04/06/18 14:18 Review of Systems ROS Statement: Those systems with pertinent positive or pertinent negative responses have been documented in the HPI. ROS Other: All systems not noted in ROS Statement are negative. Constitutional: Denies: fever, chills, weakness Respiratory: Denies: cough, dyspnea Cardiovascular: Denies: chest pain, palpitations Gastrointestinal: Denies: abdominal pain, vomiting, diarrhea, constipation Genitourinary: Denies: dysuria, hematuria Musculoskeletal: Denies: back pain Skin: Reports: as per HPI, lesions Past Medical History Past Medical History: No Reported History Additional Past Medical History / Comment(s): Hepatitis C History of Any Multi-Drug Resistant Organisms: None Reported Past Surgical History: Section, Cholecystectomy Past Anesthesia/Blood Transfusion Reactions: No Reported Reaction Past Psychological History: No Psychological Hx Reported Smoking Status: Former smoker Past Alcohol Use History: None Reported Past Drug Use History: None Reported - Past Family History Father Family Medical History: No Reported History General Exam Limitations: no limitations General appearance: alert, in no apparent distress Respiratory exam: Present: normal lung sounds bilaterally. Absent: respiratory distress, wheezes, rales, rhonchi, stridor Cardiovascular Exam: Present: regular rate, normal rhythm, normal heart sounds. Absent: systolic murmur, diastolic murmur, rubs, gallop GI/Abdominal exam: Present: soft. Absent: distended, tenderness, guarding, rebound Skin exam: Present: warm, dry, normal color, other (Patient does have an approximately 2-3 cm diameter area of fluctuance to the left of the perianal area. There is also a healing incision there with no erythema, warmth, or drainage.) Course Vital Signs 04/14/18 04/14/18 04:26 07:17 Temperature 99.2 F 98.7 F Pulse Rate 104 H 67 Respiratory 18 18 Rate Blood Pressure 143/66 129/76 O2 Sat by Pulse 99 98 Oximetry Medical Decision Making - Medical Decision Making Patient is a 37-year-old woman who presents with concern that she is having recurrence of a left perianal abscess. At this point there is not a drainable fluid collection. I did discuss the case with the surgeon who had seen her previously, Dr. Hernandez, and he will see the patient in clinic. In addition, she does have an existing appointment with her infectious disease specialist for approximately 4 hours from now. I discussed with the patient appropriate further care and follow-up as well as return parameters reviewed - Lab Data Result diagrams: 04/14/18 05:22 04/14/18 05:22 Lab Results 04/14/18 04/14/18 Range/Units 05:22 05:22 WBC 4.9 (3.8-10.6) k/uL RBC 4.00 (3.80-5.40) m/uL Hgb 13.1 (11.4-16.0) gm/dL Hct 38.5 (34.0-46.0) % MCV 96.3 (80.0-100.0) fL MCH 32.8 (25.0-35.0) pg MCHC 34.1 (31.0-37.0) g/dL RDW 13.3 (11.5-15.5) % Plt Count 338 (150-450) k/uL Neutrophils % 57 % Lymphocytes % 29 % Monocytes % 8 % Eosinophils % 2 % Basophils % 1 % Neutrophils # 2.8 (1.3-7.7) k/uL Lymphocytes # 1.4 (1.0-4.8) k/uL Monocytes # 0.4 (0-1.0) k/uL Eosinophils # 0.1 (0-0.7) k/uL Basophils # 0.1 (0-0.2) k/uL Sodium 142 (137-145) mmol/L Potassium 4.6 (3.5-5.1) mmol/L Chloride 106 (98-107) mmol/L Carbon Dioxide 26 (22-30) mmol/L Anion Gap 10 mmol/L BUN 9 (7-17) mg/dL Creatinine 0.70 (0.52-1.04) mg/dL Est GFR (CKD-EPI)AfAm >90 (>60 ml/min/1.73 sqM) Est GFR (CKD-EPI)NonAf >90 (>60 ml/min/1.73 sqM) Glucose 100 H (74-99) mg/dL Calcium 9.4 (8.4-10.2) mg/dL Disposition Clinical Impression: Perianal abscess Disposition: HOME SELF-CARE Condition: Fair Instructions: Abscess (ED) Prescriptions: Ciprofloxacin HCl [Cipro] 500 mg PO Q12HR #14 tablet Famotidine [Pepcid] 20 mg PO DAILY #14 tablet Ondansetron Odt [Zofran ODT] 4 mg PO Q8HR PRN #10 tab PRN Reason: Nausea Is patient prescribed a controlled substance at d/c from ED?: No Referrals: Humza Hernandez MD [STAFF PHYSICIAN] - 1-2 days Cayden Francois MD [STAFF PHYSICIAN] - 1-2 days
[2018-04-14 05:36] LABS: Basophils # (A) 0.1 k/uL (0-0.2); Basophils % (A) 1 %; Eosinophils # (A) 0.1 k/uL (0-0.7); Eosinophils % (A) 2 %; HCT 38.5 % (34.0-46.0); HGB 13.1 gm/dL (11.4-16.0); Lymphocytes # (A) 1.4 k/uL (1.0-4.8); Lymphocytes % (A) 29 %; MCH 32.8 pg (25.0-35.0); MCHC 34.1 g/dL (31.0-37.0); MCV 96.3 fL (80.0-100.0); Monocytes # (A) 0.4 k/uL (0-1.0); Monocytes % (A) 8 %; Neutrophils # (A) 2.8 k/uL (1.3-7.7); Neutrophils % (A) 57 %; Platelet Count 338 k/uL (150-450); RDW 13.3 % (11.5-15.5); WBC 4.9 k/uL (3.8-10.6)
[2018-04-14 05:48] LABS: Blood Urea Nitrogen 9 mg/dL (7-17); Calcium 9.4 mg/dL (8.4-10.2); Carbon Dioxide 26 mmol/L (22-30); Chloride 106 mmol/L (98-107); Glucose 100 mg/dL (74-99); Potassium 4.6 mmol/L (3.5-5.1)
[2018-04-14 05:49] LABS: Anion Gap 10 mmol/L; Sodium 142 mmol/L (137-145)
[2018-04-14 07:19] VITALS: BP 129/76; PULSE 67; TEMP 98.7
== END 2018-04-14 07:19 | disposition home or self-care (01) ==
LOC: EC 04:16
DX: K61.0 Anal abscess (principal); Z87.891 Personal history of nicotine dependence; Z86.19 Personal history of other infectious and parasitic diseases; Z88.2 Allergy status to sulfonamides; Z88.6 Allergy status to analgesic agent; Z91.040 Latex allergy status
CPT/HCPCS: 36415; 80048; 85025; 99283; 96365; 96366; 96375; J2270; J1956

== ENCOUNTER → 2018-04-14 | Outpatient (CLI) | payer OTHER ==
--- NOTE | 2018-04-14 13:06 | CT ---
EXAMINATION TYPE: CT pelvis w con DATE OF EXAM: 04/14/2018 COMPARISON: CT abdomen and pelvis March 29, 2018 HISTORY: Lt perianal abscess CT DLP: 1647 mGycm Automated exposure control for dose reduction was used. CONTRAST: Performed with oral and with IV Contrast, patient injected with 100 mL of Isovue 300. CT of pelvis. FINDINGS: Left-sided perianal abscess now measures up to 5.4 x 2.4 cm on axial image 45 with craniocaudal exten bear of 3.4 cm coronal image 60, slightly enlarged versus prior. No new fluid collection or abscesses are identified. Slightly retroverted uterus remains present with tubal ligation clips along the periphery. No suspici ous bowel dilatation seen. No concerning pelvic fluid collection is noted. Bladder is felt within nor mal limits. There is vacuum disc phenomenon with mild disc space narrowing lumbosacral junction redem onstrated. IMPRESSION: INTERVAL SLIGHT ENLARGEMENT IN LEFT PERIANAL ABSCESS. Case reviewed with ordering physician at time of dictation.
== END | disposition home or self-care (01) ==
LOC: RADCTMAIN 10:54
PROVIDERS: ATTEND Internal Medicine Infectious Disease
DX: K61.0 Anal abscess (principal)
CPT/HCPCS: 72193; Q9967

== ENCOUNTER 2018-04-17 06:50 | Inpatient (IN) | payer OTHER ==
[2018-04-17] MEDS ORDERED: SODIUM CHLORIDE 0.9% 1,000 ML IV ONE (07:33)
--- NOTE | 2018-04-17 07:35 | ED ---
General Adult HPI - General Chief complaint: Skin/Abscess/Foreign Body Stated complaint: Abscess Time Seen by Provider: 04/17/18 07:06 Source: patient, RN notes reviewed, old records reviewed Mode of arrival: ambulatory Limitations: no limitations - History of Present Illness Initial comments: 37-year-old female presents for evaluation of pain and swelling in her left perianal region. Patient has had previous perianal and perivaginal abscess which was drained in the past 3 weeks. She was placed on IV antibiotics, discharged from the hospital with an upper extremity PICC line to continue IV antibiotics. She was in the emergency department 3 days ago and was instructed to stay for further drainage, however patient did not have a life manager and was forced to leave. She is presenting today with worsening pain. She has had subjective fever and chills. She is having normal bowel movements. According to the patient she was scheduled for surgery this coming Wednesday however she feels symptoms are significantly worsening. - Related Data Home Medications Medication Instructions Recorded Confirmed Cefuroxime Axetil [Ceftin] 500 mg PO BID 04/17/18 04/17/18 Previous Rx's Medication Instructions Recorded metroNIDAZOLE [Flagyl] 500 mg PO TID #42 tab 03/30/18 Allergies Allergy/AdvReac Type Severity Reaction Status Date / Time ibuprofen [From Motrin] Allergy Severe Anaphylaxis Verified 04/17/18 10:07 Sulfa (Sulfonamide Allergy Severe Dyspnea Verified 04/17/18 10:07 Antibiotics) latex Allergy Intermediate Rash/Hives Verified 04/17/18 10:07 Review of Systems ROS Statement: Those systems with pertinent positive or pertinent negative responses have been documented in the HPI. ROS Other: All systems not noted in ROS Statement are negative. Past Medical History Past Medical History: No Reported History Additional Past Medical History / Comment(s): Hepatitis C History of Any Multi-Drug Resistant Organisms: None Reported Past Surgical History: Section, Cholecystectomy Past Anesthesia/Blood Transfusion Reactions: No Reported Reaction Past Psychological History: No Psychological Hx Reported Smoking Status: Former smoker Past Alcohol Use History: Occasional Past Drug Use History: None Reported - Past Family History Father Family Medical History: No Reported History General Exam Limitations: no limitations General appearance: alert, in no apparent distress Head exam: Present: atraumatic, normocephalic Eye exam: Present: normal appearance, PERRL ENT exam: Present: normal exam Neck exam: Present: normal inspection. Absent: tenderness, meningismus Respiratory exam: Present: normal lung sounds bilaterally. Absent: respiratory distress, wheezes Cardiovascular Exam: Present: normal rhythm, tachycardia GI/Abdominal exam: Present: soft. Absent: distended, tenderness Rectal exam: Present: tenderness, other (Patient has induration, erythema, and swelling in the left perianal and perivaginal area. No fluctuance appreciated.) Extremities exam: Present: normal inspection, full ROM, tenderness Neurological exam: Present: alert, oriented X3, CN II-XII intact. Absent: motor sensory deficit Psychiatric exam: Present: normal affect, normal mood Skin exam: Present: warm, dry, intact. Absent: cyanosis, diaphoretic Course Vital Signs 04/17/18 04/17/18 06:54 09:31 Temperature 98.7 F 98.6 F Pulse Rate 110 H 74 Respiratory 20 18 Rate Blood Pressure 122/89 114/57 O2 Sat by Pulse 98 100 Oximetry - Reevaluation(s) Reevaluation #1: 04/17/18 08:35 (Culture results are reviewed, patient did have positive E. coli which was sensitive to ceftriaxone. She is given 2 g ceftriaxone. Medical Decision Making - Medical Decision Making Case discussed with Dr. Hernandez, given the worsening abscess formation on CT, patient will be taken to the operating room for drainage. - Lab Data Result diagrams: 04/17/18 07:45 04/17/18 07:45 Lab Results 04/17/18 04/17/18 04/17/18 Range/Units 07:45 07:45 07:45 WBC 5.7 (3.8-10.6) k/uL RBC 3.87 (3.80-5.40) m/uL Hgb 12.8 (11.4-16.0) gm/dL Hct 36.7 (34.0-46.0) % MCV 95.0 (80.0-100.0) fL MCH 33.0 (25.0-35.0) pg MCHC 34.8 (31.0-37.0) g/dL RDW 13.3 (11.5-15.5) % Plt Count 300 (150-450) k/uL Neutrophils % 68 % Lymphocytes % 22 % Monocytes % 6 % Eosinophils % 2 % Basophils % 1 % Neutrophils # 3.8 (1.3-7.7) k/uL Lymphocytes # 1.3 (1.0-4.8) k/uL Monocytes # 0.3 (0-1.0) k/uL Eosinophils # 0.1 (0-0.7) k/uL Basophils # 0.1 (0-0.2) k/uL Sodium 142 (137-145) mmol/L Potassium 4.2 (3.5-5.1) mmol/L Chloride 107 (98-107) mmol/L Carbon Dioxide 24 (22-30) mmol/L Anion Gap 11 mmol/L BUN 4 L (7-17) mg/dL Creatinine 0.68 (0.52-1.04) mg/dL Est GFR (CKD-EPI)AfAm >90 (>60 ml/min/1.73 sqM) Est GFR (CKD-EPI)NonAf >90 (>60 ml/min/1.73 sqM) Glucose 105 H (74-99) mg/dL Plasma Lactic Acid Deric 0.7 (0.7-2.0) mmol/L Calcium 9.3 (8.4-10.2) mg/dL Total Bilirubin 0.9 (0.2-1.3) mg/dL AST 45 H (14-36) U/L ALT 58 H (9-52) U/L Alkaline Phosphatase 68 (38-126) U/L Total Protein 6.9 (6.3-8.2) g/dL Albumin 4.0 (3.5-5.0) g/dL Urine HCG, Qual (Not Detectd) 04/17/18 Range/Units 08:04 WBC (3.8-10.6) k/uL RBC (3.80-5.40) m/uL Hgb (11.4-16.0) gm/dL Hct (34.0-46.0) % MCV (80.0-100.0) fL MCH (25.0-35.0) pg MCHC (31.0-37.0) g/dL RDW (11.5-15.5) % Plt Count (150-450) k/uL Neutrophils % % Lymphocytes % % Monocytes % % Eosinophils % % Basophils % % Neutrophils # (1.3-7.7) k/uL Lymphocytes # (1.0-4.8) k/uL Monocytes # (0-1.0) k/uL Eosinophils # (0-0.7) k/uL Basophils # (0-0.2) k/uL Sodium (137-145) mmol/L Potassium (3.5-5.1) mmol/L Chloride (98-107) mmol/L Carbon Dioxide (22-30) mmol/L Anion Gap mmol/L BUN (7-17) mg/dL Creatinine (0.52-1.04) mg/dL Est GFR (CKD-EPI)AfAm (>60 ml/min/1.73 sqM) Est GFR (CKD-EPI)NonAf (>60 ml/min/1.73 sqM) Glucose (74-99) mg/dL Plasma Lactic Acid Deric (0.7-2.0) mmol/L Calcium (8.4-10.2) mg/dL Total Bilirubin (0.2-1.3) mg/dL AST (14-36) U/L ALT (9-52) U/L Alkaline Phosphatase (38-126) U/L Total Protein (6.3-8.2) g/dL Albumin (3.5-5.0) g/dL Urine HCG, Qual Not Detected (Not Detectd) Disposition Clinical Impression: Loulou-rectal abscess, Perianal abscess Disposition: ADMITTED IP TO THIS [facility] Condition: Stable Is patient prescribed a controlled substance at d/c from ED?: No Referrals: Raudel Cox MD [Primary Care Provider] - 1-2 days Time of Disposition: 10:15 Decision to Admit Reason: Admit from EC Decision Date: 04/17/18 Decision Time: 10:15
[2018-04-17 08:04] LABS: Basophils # (A) 0.1 k/uL (0-0.2); Basophils % (A) 1 %; Eosinophils # (A) 0.1 k/uL (0-0.7); Eosinophils % (A) 2 %; HCT 36.7 % (34.0-46.0); HGB 12.8 gm/dL (11.4-16.0); Lymphocytes # (A) 1.3 k/uL (1.0-4.8); Lymphocytes % (A) 22 %; MCHC 34.8 g/dL (31.0-37.0); Mean Platelet Volume 6.9; Monocytes # (A) 0.3 k/uL (0-1.0); Monocytes % (A) 6 %; Neutrophils # (A) 3.8 k/uL (1.3-7.7); Neutrophils % (A) 68 %; Platelet Count 300 k/uL (150-450); RBC 3.87 m/uL (3.80-5.40); RDW 13.3 % (11.5-15.5); WBC 5.7 k/uL (3.8-10.6)
[2018-04-17 08:07] LABS: ALT 58 U/L (9-52); AST 45 U/L (14-36); Alkaline Phosphatase 68 U/L (38-126); Anion Gap 11 mmol/L; Blood Urea Nitrogen 4 mg/dL (7-17); Calcium 9.3 mg/dL (8.4-10.2); Carbon Dioxide 24 mmol/L (22-30); Chloride 107 mmol/L (98-107); Glucose 105 mg/dL (74-99); Potassium 4.2 mmol/L (3.5-5.1); Sodium 142 mmol/L (137-145); Total Bilirubin 0.9 mg/dL (0.2-1.3); Total Protein 6.9 g/dL (6.3-8.2)
[2018-04-17] MEDS ORDERED: cefTRIAXone IN SWFI 2,000 MG/20 ML SYRINGE IVP STA (08:35)
[2018-04-17] MEDS ORDERED: MORPHINE SULFATE 2 MG/ML SYRINGE IVP STA (08:38)
--- NOTE | 2018-04-17 09:44 | CT ---
EXAMINATION TYPE: CT pelvis w con DATE OF EXAM: 04/17/2018 COMPARISON: 04/14/2018 HISTORY: Abscess CT DLP: 1606.00 mGycm Automated exposure control for dose reduction was used. CONTRAST: Performed with IV Contrast, patient injected with 100 ml mL of Isovue 300. FINDINGS: Left-sided perianal abscess now measures up to 5.4 x 3.3 cm and is not entirely included in the field -of-view. Approximately similar to the prior exam. Uterus is retroverted and there is suggestion of tubal ligation clips. Bowel gas pattern nonspecific. Appendix normal. Bladder is felt within normal limits. Degenerative change of the lumbar spine.. Cho lecystectomy clips noted. There is minimal right hydronephrosis and hydroureter with no evidence of calcification. IMPRESSION: LEFT PERIANAL ABSCESS IS SLIGHTLY INCREASED IN TRANSVERSE DIAMETER NOW MEASURING 3.4 CM AND PREVIOUSL Y MEASURING 2.47 CM. NOTE IS MADE THE ENTIRE ABSCESS IS NOT ENTIRELY INCLUDED IN THE [id number]. RIGHT-SIDED HYDRONEPHROSIS AND HYDROURETER NOTED NO URETERAL OR RENAL CALCIFICATION..
[2018-04-17] MEDS ORDERED: NALOXONE 0.4 MG/ML 1 ML VIAL IV PRN ×2 (10:13→12:15)
--- NOTE | 2018-04-17 11:06 | P.GSHP ---
History of Present Illness H&P Date: 04/17/18 Chief Complaint: Left perianal abscess This a 37-year-old female who has a history of a left perianal abscess. Patient noted to have increased pain and fever in the area. She was sent to the emergency room. She was reimaged and the abscess cavity has increased in size. She's been admitted to the hospital for incision and drainage of perianal abscess Past Medical History Past Medical History: No Reported History Additional Past Medical History / Comment(s): Hepatitis C History of Any Multi-Drug Resistant Organisms: None Reported Past Surgical History: Section, Cholecystectomy Past Anesthesia/Blood Transfusion Reactions: No Reported Reaction Past Psychological History: No Psychological Hx Reported Smoking Status: Former smoker Past Alcohol Use History: Occasional Past Drug Use History: None Reported - Past Family History Father Family Medical History: No Reported History Medications and Allergies Home Medications Medication Instructions Recorded Confirmed Type metroNIDAZOLE [Flagyl] 500 mg PO TID #42 tab 03/30/18 04/17/18 Rx Cefuroxime Axetil [Ceftin] 500 mg PO BID 04/17/18 04/17/18 History Allergies Allergy/AdvReac Type Severity Reaction Status Date / Time ibuprofen [From Motrin] Allergy Severe Anaphylaxis Verified 04/17/18 10:07 Sulfa (Sulfonamide Allergy Severe Dyspnea Verified 04/17/18 10:07 Antibiotics) latex Allergy Intermediate Rash/Hives Verified 04/17/18 10:07 Surgical - Exam Vital Signs Temp Pulse Resp BP Pulse Ox 98.7 F 110 H 20 122/89 98 04/17/18 06:54 04/17/18 06:54 04/17/18 06:54 04/17/18 06:54 04/17/18 06:54 - General well developed, no distress - Eyes PERRL - ENT normal pinna - Neck no masses - Respiratory normal expansion - Cardiovascular Rhythm: regular - Abdomen Abdomen: soft - Rectum Left perianal pain and swelling Results - Labs 04/17/18 07:45 04/17/18 07:45 Abnormal Lab Results - Last 24 Hours (Table) 04/17/18 Range/Units 07:45 BUN 4 L (7-17) mg/dL Glucose 105 H (74-99) mg/dL AST 45 H (14-36) U/L ALT 58 H (9-52) U/L Diabetes panel 04/17/18 Range/Units 07:45 Sodium 142 (137-145) mmol/L Potassium 4.2 (3.5-5.1) mmol/L Chloride 107 (98-107) mmol/L Carbon Dioxide 24 (22-30) mmol/L BUN 4 L (7-17) mg/dL Creatinine 0.68 (0.52-1.04) mg/dL Glucose 105 H (74-99) mg/dL Calcium 9.3 (8.4-10.2) mg/dL AST 45 H (14-36) U/L ALT 58 H (9-52) U/L Alkaline Phosphatase 68 (38-126) U/L Total Protein 6.9 (6.3-8.2) g/dL Albumin 4.0 (3.5-5.0) g/dL Calcium panel 04/17/18 Range/Units 07:45 Calcium 9.3 (8.4-10.2) mg/dL Albumin 4.0 (3.5-5.0) g/dL Pituitary panel 04/17/18 Range/Units 07:45 Sodium 142 (137-145) mmol/L Potassium 4.2 (3.5-5.1) mmol/L Chloride 107 (98-107) mmol/L Carbon Dioxide 24 (22-30) mmol/L BUN 4 L (7-17) mg/dL Creatinine 0.68 (0.52-1.04) mg/dL Glucose 105 H (74-99) mg/dL Calcium 9.3 (8.4-10.2) mg/dL Adrenal panel 04/17/18 Range/Units 07:45 Sodium 142 (137-145) mmol/L Potassium 4.2 (3.5-5.1) mmol/L Chloride 107 (98-107) mmol/L Carbon Dioxide 24 (22-30) mmol/L BUN 4 L (7-17) mg/dL Creatinine 0.68 (0.52-1.04) mg/dL Glucose 105 H (74-99) mg/dL Calcium 9.3 (8.4-10.2) mg/dL Total Bilirubin 0.9 (0.2-1.3) mg/dL AST 45 H (14-36) U/L ALT 58 H (9-52) U/L Alkaline Phosphatase 68 (38-126) U/L Total Protein 6.9 (6.3-8.2) g/dL Albumin 4.0 (3.5-5.0) g/dL Assessment and Plan Assessment: Left perianal abscess. We'll perform incision and drainage.
[2018-04-17] MEDS ORDERED: PROPOFOL 10 MG/ML 20 ML VIAL IV ONE (11:23)
[2018-04-17] MEDS ORDERED: LIDOCAINE 1% INJ 10MG/ML (20 ML MDV) ONE (11:23)
[2018-04-17] MEDS ORDERED: MIDAZOLAM 2 MG/2 ML VIAL ONE (11:23)
[2018-04-17] MEDS ORDERED: HYDROmorphone (PF) 1 MG/ML ONE (11:23)
[2018-04-17] MEDS ORDERED: fentaNYL (PF) 50 MCG/ML 2 ML AMP ONE (11:23)
[2018-04-17] MEDS ORDERED: LIDOCAINE 0.5%-EPI 1:200,000 50 ML VIAL SQ ONE (11:40)
[2018-04-17] MEDS ORDERED: LACTATED RINGERS 900 ML IV ONE (11:41)
[2018-04-17] MEDS ORDERED: HYDROmorphone 1 MG/ML 1 ML SYRINGE IVP ONE (12:14)
[2018-04-17] MEDS ORDERED: KETOROLAC 30 MG/ML 1 ML VIAL IVP SCH (12:15)
[2018-04-17] MEDS ORDERED: ONDANSETRON 4 MG/2 ML VIAL IVP PRN (12:15)
[2018-04-17] MEDS ORDERED: ACETAMINOPHEN TAB 325 MG TAB PO PRN (12:15)
[2018-04-17] MEDS ORDERED: LACTATED RINGERS 1,000 ML IV ONE (12:15)
--- NOTE | 2018-04-17 12:15 | P.OP ---
Date of Procedure: 04/17/18 Preoperative Diagnosis: Left perirectal abscess Postoperative Diagnosis: Left perirectal abscess Procedure(s) Performed: Incision and drainage of left perirectal abscess Anesthesia: MAC Surgeon: Humza Hernandez Estimated Blood Loss (ml): 10 Pathology: other (Wound culture) Condition: stable Disposition: floor Description of Procedure: The patient's placed on the operative table in the prone position. She received IV sedation. Her perineum was prepped and draped usual sterile fashion. Using a 1% local Xylocaine the skin was anesthetized. Then using an 18-gauge needle the abscess cavities found. Incision was made over the abscess cavity approximately 20 mL of purulent fluid was aspirated. The wound Was then packed with iodoform gauze. Patient top she will was sent to recovery in stable condition.
[2018-04-17] MEDS: HYDROmorphone 0.5 MG/0.5 ML SYRINGE IVP PRN ×4 (12:21→23:03)
[2018-04-17 13:00] VITALS: BMI 38.4
[2018-04-17] MEDS: PIPERACILLIN-TAZOBACTAM 3.375 GM in DEXTROSE/WATER 1 50ML.BAG IVPB SCH ×2 (15:08→23:03)
[2018-04-17] MEDS: HYDROcodone/APAP 5-325MG 1 EACH TAB PO PRN (16:51)
[2018-04-17] MEDS: DOCUSATE 100 MG CAP PO SCH (22:20)
[2018-04-18] MEDS: HYDROcodone/APAP 5-325MG 1 EACH TAB PO PRN ×4 (01:09→17:58)
[2018-04-18] MEDS: HYDROmorphone 0.5 MG/0.5 ML SYRINGE IVP PRN ×5 (03:38→21:47)
[2018-04-18] MEDS: PIPERACILLIN-TAZOBACTAM 3.375 GM in DEXTROSE/WATER 1 50ML.BAG IVPB SCH ×2 (07:39→17:57)
[2018-04-18] MEDS: ENOXAPARIN 40 MG/0.4 ML SYRINGE SQ SCH (07:39)
[2018-04-18] MEDS: DOCUSATE 100 MG CAP PO SCH ×2 (07:40→21:27)
--- NOTE | 2018-04-18 12:01 | P.PN ---
<Alissa Reid - Last Filed: 04/18/18 11:48> Subjective Progress Note Date: 04/18/18 37-year-old female seen and examined. Currently resting in bed. States pain medication effective for pain control. Patient is postop April 17 incision and drainage of left perirectal abscess with 20 mL purulent fluid aspirated patient was recently discharged on March 30 at that time patient was treated for Abscess positive for E. coli had a PICC line was treated with outpatient antibiotics and followed by infectious disease. Patient stated that she did complete the antibiotics was starting to feel better but noticed over the weekend that she was experiencing increased pain in the left perirectal area Objective - Vital Signs Vital signs: Vital Signs Temp 98.6 F 04/18/18 07:00 Pulse 61 04/18/18 07:00 Resp 18 04/18/18 07:00 BP 115/73 04/18/18 07:00 Pulse Ox 97 04/18/18 07:00 Intake & Output 04/17/18 04/18/18 04/18/18 18:59 06:59 18:59 Intake Total 400 200 Output Total 30 Balance 370 200 Weight 107.955 kg Intake: IV 400 Oral 200 Output: Estimated Blood Loss 30 Other: # Voids 0 1 # Bowel Movements 0 - Exam Impression Present on admission fever pain left perianal area likely due to left perianal abscess failed outpatient treatment CAT scan pelvis obtained on April 17 show left perianal abscess slightly increased measuring 3.4 previous 2.7 History of hepatitis C Recent incision and drainage of a left Perianal abscess with a positive wound culture for C. diff Plan Continue recommendations by infectious disease Dr. Francois IV antibiotics per infectious disease Wound care as ordered Follow up on the wound cultures Pain control Progress note dictated for dr Temo jason on behalf of Dr jones The above impression and plan of care have been discussed and directed by signing physician. Alissa Reid nurse practitioner acting as scribe for signing physician. - Labs CBC & Chem 7: 04/17/18 07:45 04/17/18 07:45 Labs: Microbiology - Last 24 Hours (Table) 04/17/18 07:45 Blood Culture - Preliminary Blood No Growth after 24 hours 04/17/18 11:46 Gram Stain - Preliminary Rectum Wound Culture - Preliminary 04/17/18 11:46 Anaerobic Culture - Preliminary Anus <Nati Plascencia N - Last Filed: 04/18/18 21:33> Objective - Vital Signs Vital signs: Vital Signs Temp 98.1 F 04/18/18 14:51 Pulse 80 04/18/18 14:51 Resp 16 04/18/18 14:51 BP 121/66 04/18/18 14:51 Pulse Ox 97 04/18/18 14:51 Intake & Output 04/18/18 04/18/18 04/19/18 06:59 18:59 06:59 Intake Total 200 Balance 200 Intake: Oral 200 Other: # Voids 1 2 - Labs CBC & Chem 7: 04/17/18 07:45 04/17/18 07:45 Labs: Microbiology - Last 24 Hours (Table) 04/17/18 11:46 Gram Stain - Preliminary Rectum Wound Culture - Preliminary 04/17/18 07:45 Blood Culture - Preliminary Blood No Growth after 24 hours 04/17/18 11:46 Anaerobic Culture - Preliminary Anus
--- NOTE | 2018-04-18 22:19 | P.PN ---
Progress Note - Text Progress Note Date: 04/18/18 Needed adjustment of pain meds. Will remove all packing tomorrow.
[2018-04-19] MEDS: PIPERACILLIN-TAZOBACTAM 3.375 GM in DEXTROSE/WATER 1 50ML.BAG IVPB SCH ×3 (00:36→16:36)
--- NOTE | 2018-04-19 02:58 | CONS ---
CONSULTATION DATE OF SERVICE: 04/18/2018. REASON FOR CONSULTATION: Left perianal abscess. HISTORY OF PRESENT ILLNESS: The patient is a 37 -year-old female, who is well known to our service from a recent admission for a similar problem to the left perirenal abscess that was drained at the bedside by Dr. Hernandez. Culture positive for E coli. Repeat CT scan shows slight decrease in the size of that abscess. She did get a PICC line midline and was getting Rocephin 2 g daily in addition with oral Flagyl. However, the patient seemed to have some problems with getting the IV antibiotics with some symptoms on a follow up with about a week ago. She was transitioned to the oral Ceftin and Flagyl. Unfortunately, the patient did not mixing picker tender her prescription and came to the office last complaining of more pain to the left perianal area. The pain was getting worse over the last day or 2. The patient at this time was sent for a stat CT, which did show increase in size of the left perianal abscess. Arrangements made for the patient to be admitted to the hospital for drainage of this abscess. However, the patient refused saying that she has 2 little kids at home that she has taken care of. We tried to arrange for an outpatient CT-guided drainage that could not be done for the next day, over the weekend. The patient seemed to have more problem with pain into the left pelvic area described to be more of a throbbing nature around 7 to 8 out of 10 and no radiation. The patient did have some chills but no high-grade fever. With these symptoms, the patient presented back to the [facility] ER early Wednesday morning. On arrival to the ER the patient was afebrile. Her white count was normal. The patient did have a repeat pelvic CT done which did show the left ovarian abscess, slightly increased in transverse diameter now measuring 3.4 cm. The patient has been taken to the OR by Dr. Hernandez and did have an I and D of the left perirectal abscess. Culture has been obtained. She was admitted to the hospital, started on Zosyn and infectious disease was consulted for further recommendation regarding antibiotic therapy. REVIEW OF SYSTEMS: CONSTITUTIONAL: Positive for weakness but no high-grade fever. Eyes no complaint. ENT no complaint. Respiratory no complaint. Cardiovascular no complaint. Genitourinary as per HPI. GASTROINTESTINAL: As per HPI. Musculoskeletal no complaint. Integumentary no complaint. Psychological no complaint. Endocrine no complaint. Neurological no complaint. PAST MEDICAL HISTORY: Significant for chronic hepatitis C. The patient did have a left perirectal abscess with an E coli. PAST SURGICAL HISTORY: Cholecystectomy and left perirectal abscess drainage. SOCIAL HISTORY: Remote history of smoking. Rarely drinks. No drug use. FAMILY HISTORY: No pertinent findings noticed. ALLERGIES: TO SULFA, IBUPROFEN AND CIPRO. MEDICATIONS: Medication currently the patient is on Tylenol, Bland, Colace, Lovenox, Dilaudid, Narcan, Zofran, Zosyn. EXAMINATION: Blood pressure is 123/53 with a pulse of 55, temperature 97.3. She is 100% on room air. General description is a middle aged female lying in bed in no distress. No tachypnea or accessory muscles of respiration use. HEENT: Shows no pallor or scleral icterus. Oral mucosal membranes dry. No pharyngeal erythema or thrush. Neck: Trachea central. No thyromegaly. Lungs unlabored breathing. Clear to auscultation anteriorly. Heart S1, S2. Regular rate and rhythm. Abdomen soft. No tenderness. No guarding. No rigidity. No organomegaly. The left perirectal wound is currently packed after drainage. EXTREMITIES: No edema of the feet. Skin examination: No rash or mass palpable. Neurologic: The patient is awake, alert, oriented times three. Mood and affect normal. LABS: Hemoglobin is 12.8, white count 5.7, BUN of 4, creatinine 0.68. Electrolytes have been normal. Liver enzymes mildly elevated. Urine HCG was not detected. Previous culture with an E coli. Culture this admission currently pending. DIAGNOSTIC IMPRESSION AND PLAN: Patient with left perirectal abscess failing outpatient antibiotic therapy admitted to the hospital with worsening of the abscess status post OR drainage of this abscess with cultures currently pending. PLAN: 1. The patient will be kept on Zosyn 3.375 g IV piggyback every 8 hours while waiting for the culture to finalize. 2. In view of the patient noncompliance with oral antibiotic, recommend getting a midline for outpatient IV antibiotic therapy with discharge antibiotic will depend on the culture report. 3. We will follow up on clinical condition and culture to further adjust medication if needed. Thank you for this consultation. We will follow this patient along with you. MMODL / IJN: [id number] /
[2018-04-19] MEDS: HYDROmorphone 0.5 MG/0.5 ML SYRINGE IVP PRN ×4 (05:02→23:28)
[2018-04-19] MEDS: DOCUSATE 100 MG CAP PO SCH ×2 (08:17→22:02)
[2018-04-19] MEDS: ENOXAPARIN 40 MG/0.4 ML SYRINGE SQ SCH (08:18)
--- NOTE | 2018-04-19 11:52 | P.CONS ---
History of Present Illness - History of Present Illness This is a pleasant 37 years old female with past medical history of hepatitis C , status post section and cholecystectomy. She was admitted for left perianal abscess due to increased pain and fever. Patient was and limited under the surgical service and underwent incision and drainage and of the perianal abscess on 04/17/2018, with a purulent fluid aspirated from the abscess. As per documentation was discharge on 03/13/2018 treated for abscess with E. coli with PICC line and outpatient antibiotic and being followed by infectious disease. Infectious disease service has been consulted and they recommended to continue with Zosyn while waiting for the culture results and midline for possible outpatient antibiotic Review of Systems CONSTITUTIONAL: No fever, no malaise, no fatigue. HEENT: No recent visual problems or hearing problems. Denied any sore throat. CARDIOVASCULAR: No orthopnea, PND, no palpitations, no syncope. PULMONARY: No shortness of breath, no cough, no hemoptysis. GASTROINTESTINAL: No diarrhea, no nausea, no vomiting, no abdominal pain. Normoactive bowel sounds. NEUROLOGICAL: No headaches, no weakness, no numbness. HEMATOLOGICAL: Denies any bleeding or petechiae. GENITOURINARY: Denies any burning micturition, frequency, or urgency. MUSCULOSKELETAL/RHEUMATOLOGICAL: Denies any joint pain, swelling, or any muscle pain. ENDOCRINE: Denies any polyuria or polydipsia. Past Medical History Past Medical History: No Reported History Additional Past Medical History / Comment(s): Hepatitis C History of Any Multi-Drug Resistant Organisms: None Reported Past Surgical History: Section, Cholecystectomy Past Anesthesia/Blood Transfusion Reactions: No Reported Reaction Past Psychological History: No Psychological Hx Reported Smoking Status: Former smoker Past Alcohol Use History: Occasional Past Drug Use History: None Reported - Past Family History Father Family Medical History: Eye Disorder Medications and Allergies Home Medications Medication Instructions Recorded Confirmed Type metroNIDAZOLE [Flagyl] 500 mg PO TID #42 tab 03/30/18 04/17/18 Rx Cefuroxime Axetil [Ceftin] 500 mg PO BID 04/17/18 04/17/18 History Allergies Allergy/AdvReac Type Severity Reaction Status Date / Time ibuprofen [From Motrin] Allergy Severe Anaphylaxis Verified 04/17/18 10:07 Sulfa (Sulfonamide Allergy Severe Dyspnea Verified 04/17/18 10:07 Antibiotics) latex Allergy Intermediate Rash/Hives Verified 04/17/18 10:07 Physical Exam Vitals: Vital Signs Temp Pulse Resp BP Pulse Ox 04/19/18 05:41 98.5 F 76 17 130/76 98 04/18/18 23:00 98.7 F 68 18 115/71 98 04/18/18 14:51 98.1 F 80 16 121/66 97 Intake and Output 04/18/18 04/19/18 04/19/18 22:59 06:59 14:59 Other: # Voids 2 1 GENERAL: The patient is alert and oriented x3, not in any acute distress. Well developed, well nourished. HEENT: Pupils are round and equally reacting to light. EOMI. No scleral icterus. No conjunctival pallor. Normocephalic, atraumatic. No pharyngeal erythema. No thyromegaly. CARDIOVASCULAR: S1 and S2 present. No murmurs, rubs, or gallops. PULMONARY: Chest is clear to auscultation, no wheezing or crackles. ABDOMEN: Soft, nontender, nondistended, normoactive bowel sounds. No palpable organomegaly. MUSCULOSKELETAL: No joint swelling or deformity. EXTREMITIES: No cyanosis, clubbing, or pedal edema. NEUROLOGICAL: Gross neurological examination did not reveal any focal deficits. SKIN: No rashes. Results CBC & Chem 7: 04/17/18 07:45 04/17/18 07:45 Labs: Microbiology - Last 24 Hours (Table) 04/17/18 07:45 Blood Culture - Preliminary Blood No Growth after 48 hours 04/17/18 11:46 Gram Stain - Preliminary Rectum Wound Culture - Preliminary Assessment and Plan Assessment: -Left perineal abscess, status post incision and drainage by surgical team -Right hydroureter and hydronephrosis on CAT scan of the pelvis -history of hepatitis C -status post section and -status post cholecystectomy -Obesity Plan: We'll continue with the same and treatment:, Continue with a symptomatic treatment. Infectious disease on the case and patient on Zosyn. Continue with DVT prophylaxis and pain management as per primary team. Patient was assisted stable. Patient denies chest pain or dyspnea, she had some pain at the abscess site but now she feels better, no problems with diet. Patient is informed to have right hydroureter and hydronephrosis, we're comment urological evaluation. Check her troponin returning her ultrasound. Labs reviewed and creatinine is an within normal DVT prophylaxis Lovenox GI prophylaxis no need Thank you for allowing us the chance to take care of this patient. Please feel free to contact us for any further clarification or questions
[2018-04-19 12:42] LABS: Basophils # (A) 0.1 k/uL (0-0.2); Basophils % (A) 1 %; Eosinophils # (A) 0.1 k/uL (0-0.7); Eosinophils % (A) 3 %; HGB 13.5 gm/dL (11.4-16.0); Lymphocytes # (A) 2.1 k/uL (1.0-4.8); Lymphocytes % (A) 40 %; MCH 33.4 pg (25.0-35.0); MCHC 34.6 g/dL (31.0-37.0); MCV 96.7 fL (80.0-100.0); Mean Platelet Volume 6.7; Monocytes # (A) 0.3 k/uL (0-1.0); Monocytes % (A) 5 %; Neutrophils # (A) 2.7 k/uL (1.3-7.7); Neutrophils % (A) 50 %; Platelet Count 301 k/uL (150-450); RBC 4.04 m/uL (3.80-5.40); RDW 13.7 % (11.5-15.5); WBC 5.3 k/uL (3.8-10.6)
[2018-04-19 12:46] LABS: Anion Gap 11 mmol/L; Blood Urea Nitrogen 6 mg/dL (7-17); Calcium 8.9 mg/dL (8.4-10.2); Carbon Dioxide 27 mmol/L (22-30); Chloride 104 mmol/L (98-107); Glucose 91 mg/dL (74-99); Potassium 3.6 mmol/L (3.5-5.1); Sodium 142 mmol/L (137-145)
[2018-04-19 12:57] LABS: HCG,Qualitative Serum Not Detected
--- NOTE | 2018-04-19 13:20 | P.PN ---
<Alissa Reid - Last Filed: 04/19/18 13:11> Subjective Progress Note Date: 04/19/18 37-year-old female seen and examined. Patient states continues to have pain in the peritoneal area packing was removed last evening. Patient is postop incision and drainage of the left. periRectal abscess done on April 17 Objective - Vital Signs Vital signs: Vital Signs Temp 98.5 F 04/19/18 05:41 Pulse 76 04/19/18 05:41 Resp 17 04/19/18 05:41 BP 130/76 04/19/18 05:41 Pulse Ox 98 04/19/18 05:41 Intake & Output 04/18/18 04/19/18 04/19/18 18:59 06:59 18:59 Other: # Voids 2 1 - Exam Physical exam 37-year-old female resting in bed appears in no acute distress Lungs adequate air movement bilaterally no shortness of Heart S1-S2 audible regular Abdomen soft nontender reports no nausea vomiting no bowel movement Extremities no edema noted rectum skin tear noted left buttocks dressing removed from the. Rectal area skin amount of drainage less tenderness - Labs CBC & Chem 7: 04/19/18 12:25 04/19/18 12:25 Labs: Abnormal Lab Results - Last 24 Hours (Table) 04/19/18 Range/Units 12:25 BUN 6 L (7-17) mg/dL Microbiology - Last 24 Hours (Table) 04/17/18 07:45 Blood Culture - Preliminary Blood No Growth after 48 hours 04/17/18 11:46 Gram Stain - Preliminary Rectum Wound Culture - Preliminary Assessment and Plan Assessment: Impression Present on admission fever pain left perianal area likely due to left perianal abscess failed outpatient treatment CAT scan pelvis obtained on April 17 show left perianal abscess slightly increased measuring 3.4 previous 2.7 History of hepatitis C Recent incision and drainage of a left Perianal abscess with a positive wound culture for C. diff Plan Continue recommendations by infectious disease Dr. Francois IV antibiotics per infectious disease Wound care as ordered Follow up on the wound cultures Pain control Progress note dictated for dr Plascencia rounding on behalf of Dr jones The above impression and plan of care have been discussed and directed by signing physician. Alissa Reid nurse practitioner acting as scribe for signing physician. - <Nati Plascencia - Last Filed: 04/19/18 17:43> Objective - Vital Signs Vital signs: Vital Signs Temp 97.9 F 04/19/18 15:00 Pulse 86 04/19/18 15:00 Resp 17 04/19/18 15:00 BP 103/48 04/19/18 15:00 Pulse Ox 98 04/19/18 15:00 Intake & Output 04/18/18 04/19/18 04/19/18 18:59 06:59 18:59 Other: # Voids 2 1 2 - Labs CBC & Chem 7: 04/19/18 12:25 04/19/18 12:25 Labs: Abnormal Lab Results - Last 24 Hours (Table) 04/19/18 Range/Units 12:25 BUN 6 L (7-17) mg/dL Microbiology - Last 24 Hours (Table) 04/17/18 07:45 Blood Culture - Preliminary Blood No Growth after 48 hours 04/17/18 11:46 Gram Stain - Preliminary Rectum Wound Culture - Preliminary Assessment and Plan Plan: Per nursing staff and patient, wound vac did not work. All packing is gone. Antibiotic management per ID.
--- NOTE | 2018-04-19 13:22 | US ---
EXAMINATION TYPE: US kidneys/renal and bladder DATE OF EXAM: 04/19/2018 COMPARISON: CT abdomen and pelvis March 25, 2018 CLINICAL HISTORY: Right hydroureter and hydronephrosis visualized on previous CT. EXAM MEASUREMENTS: Right Kidney: 11.6 x 4.0 x 4.8 cm Left Kidney: 11.9 x 4.8 x 4.1 cm Right Kidney: No hydronephrosis or masses seen Left Kidney: No hydronephrosis or masses seen Bladder: wnl as visualized, not distended Bilateral Jets seen: No, bladder is not distended There is no evidence for hydronephrosis at this point in time. No nephrolithiasis is seen. No suspic ious solid or cystic renal masses are seen. No masses are identified in poorly distended bladder. Atul ateral ureteral jets are not identified. IMPRESSION: No hydronephrosis is evident bilaterally.
[2018-04-19] MEDS ORDERED: diphenhydrAMINE 50 MG CAP PO PRN (15:24)
--- NOTE | 2018-04-19 22:02 | PN ---
PROGRESS NOTE DATE OF SERVICE: 04/19/2018. REASON FOR FOLLOWUP: Left perirectal abscess. INTERVAL HISTORY: The patient is currently afebrile. She is breathing comfortably. Denies having any chest pain or shortness of breath. No cough. No abdominal pain or any worsening pain to the left perirectal area. EXAMINATION: Blood pressure is 100/48, pulse of 83, temperature of 97.9. She is 98% on room air. General description is a middle-aged female lying in bed in no distress. RESPIRATORY SYSTEM: Unlabored breathing. Clear to auscultation anteriorly. HEART: S1, S2. Regular rate and rhythm. ABDOMEN: Soft. Mild tenderness. Perirectum area did have a wound post drainage with no significant redness or any drainage. LABS: Hemoglobin 13.5, white count 5.7, BUN of 6, creatinine 0.75. Cultures are currently pending. DIAGNOSTIC IMPRESSION AND PLAN: Patient with left perirectal abscess, status post drainage. Previous culture positive for Escherichia coli, failing outpatient oral antibiotic therapy, status post surgical drainage. The patient will continue with Zosyn. We tried to place a wound VAC; however, that was unsuccessful. Hence, wound will be packed with Aquacel Silver and will keep the patient on Zosyn while waiting for the culture to finalize. Continue supportive care. MMODL / IJN: [id number] /
[2018-04-20] MEDS: PIPERACILLIN-TAZOBACTAM 3.375 GM in DEXTROSE/WATER 1 50ML.BAG IVPB SCH ×4 (01:47→23:20)
[2018-04-20] MEDS: ENOXAPARIN 40 MG/0.4 ML SYRINGE SQ SCH (09:20)
[2018-04-20] MEDS: DOCUSATE 100 MG CAP PO SCH ×2 (09:20→20:12)
[2018-04-20] MEDS: HYDROmorphone 0.5 MG/0.5 ML SYRINGE IVP PRN ×3 (09:31→23:20)
--- NOTE | 2018-04-20 12:24 | P.PN ---
Objective - Vital Signs Vital signs: Vital Signs Temp 97.0 F L 04/20/18 06:55 Pulse 73 04/20/18 06:55 Resp 18 04/20/18 06:55 BP 110/68 04/20/18 06:55 Pulse Ox 97 04/20/18 06:55 Intake & Output 04/19/18 04/20/18 04/20/18 18:59 06:59 18:59 Other: # Voids 2 2 - Exam GENERAL: The patient is alert and oriented x3, not in any acute distress. Well developed, well nourished. HEENT: Pupils are round and equally reacting to light. EOMI. No scleral icterus. No conjunctival pallor. Normocephalic, atraumatic. No pharyngeal erythema. No thyromegaly. CARDIOVASCULAR: S1 and S2 present. No murmurs, rubs, or gallops. PULMONARY: Chest is clear to auscultation, no wheezing or crackles. ABDOMEN: Soft, nontender, nondistended, normoactive bowel sounds. No palpable organomegaly. MUSCULOSKELETAL: No joint swelling or deformity. EXTREMITIES: No cyanosis, clubbing, or pedal edema. NEUROLOGICAL: Gross neurological examination did not reveal any focal deficits. SKIN: No rashes. - Labs CBC & Chem 7: 04/19/18 12:25 04/19/18 12:25 Labs: Abnormal Lab Results - Last 24 Hours (Table) 04/19/18 Range/Units 12:25 BUN 6 L (7-17) mg/dL Microbiology - Last 24 Hours (Table) 04/17/18 07:45 Blood Culture - Preliminary Blood No Growth after 72 hours 04/17/18 11:46 Anaerobic Culture - Preliminary Anus Assessment and Plan Assessment: -Left perineal abscess, status post incision and drainage by surgical team -Right hydroureter and hydronephrosis on CAT scan of the pelvis, with negative retroperitoneal ultrasound for hydroureter or hydronephrosis -history of hepatitis C -status post section and -status post cholecystectomy -Obesity Plan: We'll continue with the same and treatment:, Continue with a symptomatic treatment. Infectious disease on the case and patient on Zosyn. Wound culture : Pending. Continue with DVT prophylaxis and pain management as per primary team. Patient was assisted stable. Patient denies chest pain or dyspnea, she had some pain at the abscess site but now she feels better, no problems with diet. Patient is informed to have right hydroureter and hydronephrosis, ultrasound of the system didn't show hydroureter or hydronephrosis on either side , I think still patient can benefit from urological evaluation which can be done as an outpatient. Patient was informed and she doesn't want us to make an appointment when offered and referred to give her the contact information and told me she will call and follow-up as an outpatient . Labs reviewed and creatinine is an within normal DVT prophylaxis Lovenox GI prophylaxis no need Thank you for allowing us the chance to take care of this patient. Please feel free to contact us for any further clarification or questions
--- NOTE | 2018-04-20 14:42 | PN ---
PROGRESS NOTE DATE OF SERVICE: 04/20/2018. REASON FOR FOLLOWUP: Left perirectal abscess. INTERVAL HISTORY: The patient is currently afebrile. She is breathing comfortably. Denies having any chest pain or shortness of breath or cough. No abdominal pain. Overall pain and pressure decreased after removal of the old dressing. EXAMINATION: Blood pressure 110/60 with a pulse of 73, temperature of 97. She is 97% on room air. General description is a middle aged female, lying in bed in no distress. RESPIRATORY SYSTEM: Unlabored breathing. Clear to auscultation anteriorly. HEART: S1, S2. Regular rate and rhythm. ABDOMEN: Soft, no tenderness. LABS: The wound culture currently pending. DIAGNOSTIC IMPRESSION AND PLAN: Patient with left perirectal abscess status post drainage. Currently on Zosyn. We are waiting for the cultures to be finalized. Antibiotic on discharge very more likely oral. Local care to continue with Aquacel packing with close outpatient followup. MMODL / IJN: [id number] /
[2018-04-20] MEDS: HYDROcodone/APAP 5-325MG 1 EACH TAB PO PRN (19:41)
--- NOTE | 2018-04-20 22:11 | P.PN ---
Subjective Progress Note Date: 04/20/18 She reports moderate to severe pain with attempted packing of her phoebe-rectal abscess. She is requiring Dilaudid. Cultures are still pending. Yeast is growing from her cultures as well. Objective - Vital Signs Vital signs: Vital Signs Temp 98.0 F 04/20/18 13:32 Pulse 99 04/20/18 13:32 Resp 20 04/20/18 13:32 BP 128/79 04/20/18 13:32 Pulse Ox 97 04/20/18 13:32 Intake & Output 04/20/18 04/20/18 04/21/18 06:59 18:59 06:59 Other: # Voids 2 1 - Exam ABDOMEN: Soft nontender. RECTUM: Packing present GENERAL: Well developed and in no acute distress. Pleasant. HEENT: No sclera icterus. Extraocular movements grossly intact. Moist buccal mucosa. Head is atraumatic, normocephalic. Hears conversational speech. No nasal drainage. NECK: Supple without lymphadenopathy. No JV distention. CHEST: Non-labored respirations and equal bilateral excursions. CARDIOVASCULAR: Regular rate and rhythm. Palpable 2+ radial pulses. MUSCULOSKELETAL: No clubbing, cyanosis or edema. NEUROLOGIC: No focal or lateralizing signs. PSYCH: Appropriate affect. Alert and oriented to person, place and time. SKIN: Good skin turgor. Well perfused. - Labs CBC & Chem 7: 04/19/18 12:25 04/19/18 12:25 Labs: Microbiology - Last 24 Hours (Table) 04/17/18 11:46 Gram Stain - Final Rectum Wound Culture - Final Kirsty albicans 04/17/18 07:45 Blood Culture - Preliminary Blood No Growth after 72 hours 04/17/18 11:46 Anaerobic Culture - Preliminary Anus Assessment and Plan (1) Phoebe-rectal abscess Status: Acute Code(s): K61.1 - RECTAL ABSCESS SNOMED Code(s): 41835961 Plan: 1. Still awaiting final cultures to guide antibiotic management 2. Will need adjustment of oral pain medications in preparation for discharge home.
[2018-04-21 07:26] VITALS: BP 104/68; PULSE 72; RESP 18; TEMP 98.1
[2018-04-21] MEDS: PIPERACILLIN-TAZOBACTAM 3.375 GM in DEXTROSE/WATER 1 50ML.BAG IVPB SCH (08:37)
[2018-04-21] MEDS: ENOXAPARIN 40 MG/0.4 ML SYRINGE SQ SCH (08:44)
[2018-04-21] MEDS: DOCUSATE 100 MG CAP PO SCH (08:44)
--- NOTE | 2018-04-21 10:00 | P.PN ---
Subjective Subjective Patient is seen and examined at bedside this morning, she doesn't have any new complaint. She denies chest pain, dyspnea, no change in urine or bowel habits. No fever. She has some abdominal discomfort from gases which is relieved after she passes gases. Wound culture final this came back. There is some rare Kirsty in the culture. ID team are following the patient's within the recommendation for discharge antibiotic today reproducible discharge today as per surgical team Objective - Vital Signs Vital signs: Vital Signs Temp 98.1 F 04/21/18 06:51 Pulse 72 04/21/18 06:51 Resp 18 04/21/18 06:51 BP 104/68 04/21/18 06:51 Pulse Ox 100 04/21/18 06:51 Intake & Output 04/20/18 04/21/18 04/21/18 18:59 06:59 18:59 Intake Total 500 Balance 500 Intake: Oral 500 Other: # Voids 1 1 - Exam GENERAL: The patient is alert and oriented x3, not in any acute distress. Well developed, well nourished. HEENT: Pupils are round and equally reacting to light. EOMI. No scleral icterus. No conjunctival pallor. Normocephalic, atraumatic. No pharyngeal erythema. No thyromegaly. CARDIOVASCULAR: S1 and S2 present. No murmurs, rubs, or gallops. PULMONARY: Chest is clear to auscultation, no wheezing or crackles. ABDOMEN: Soft, nontender, nondistended, normoactive bowel sounds. No palpable organomegaly. MUSCULOSKELETAL: No joint swelling or deformity. EXTREMITIES: No cyanosis, clubbing, or pedal edema. NEUROLOGICAL: Gross neurological examination did not reveal any focal deficits. SKIN: No rashes. - Labs CBC & Chem 7: 04/19/18 12:25 04/19/18 12:25 Labs: Microbiology - Last 24 Hours (Table) 04/17/18 11:46 Gram Stain - Final Rectum Wound Culture - Final Kirsty albicans 04/17/18 07:45 Blood Culture - Preliminary Blood No Growth after 72 hours Assessment and Plan Assessment: -Left perineal abscess, status post incision and drainage by surgical team -Right hydroureter and hydronephrosis on CAT scan of the pelvis, with negative retroperitoneal ultrasound for hydroureter or hydronephrosis -history of hepatitis C -status post section and -status post cholecystectomy -Obesity Plan: We'll continue with the same and treatment:, Continue with a symptomatic treatment. Infectious disease on the case and patient on Zosyn. Wound culture : No organisms, where kirsty. Final oral antibiotics on discharge as per ID tea. Continue with DVT prophylaxis and pain management as per primary team. Patient is stable. Patient denies chest pain or dyspnea, she had some pain at the abscess site but now she feels better, she needed 2 doses of IV Dilaudid yesterday, no problems with diet. Patient is informed to have right hydroureter and hydronephrosis, ultrasound of the system didn't show hydroureter or hydronephrosis on either side , I think still patient can benefit from urological evaluation which can be done as an outpatient. However patient doesn't want me to make an appointment with urologist, she doesn 't want me to discuss it with Dr. Núñez (HER PCP)she seen him not with much about it. Risks including but not limited to renal failure explained to the patient and she verbalized understanding. Patient was informed and she doesn't want us to make an appointment for her however I gAve her the contact information were urologist and told me her to follow-up as an outpatient . Labs reviewed and creatinine is within normal areas patient is a stable from medical standpoint for discharge but she needs follow-up as an outpatient. Patient told me she will follow up with her PCP as recommended in one week, and she will follow up with IV and surgery, actually she has an appointment with Dr. Hernandez tomorrow home she will follow up with as patient told DVT prophylaxis Lovenox GI prophylaxis no need Thank you for allowing us the chance to take care of this patient. Please feel free to contact us for any further clarification or questions
[2018-04-21] MEDS: HYDROcodone/APAP 5-325MG 1 EACH TAB PO PRN (10:16)
--- NOTE | 2018-04-21 10:26 | P.DS ---
<Alissa Reid - Last Filed: 04/21/18 10:26> Providers Date of admission: 04/18/18 08:29 Expected date of discharge: 04/21/18 Attending physician: Humza Hernandez Consults: 04/18/18 11:08 Consult Physician Urgent Consulting Provider: Cayden Francois Consult Reason/Comments: perianal abscess Do you want consulting provider notified?: Yes 04/18/18 18:17 Consult Physician Routine Consulting Provider: Padmini Porter Consult Reason/Comments: medical management Do you want consulting provider notified?: Yes Primary care physician: [facility] Course: 27-year-old female presented to the emergency room on April 17 to be evaluated for increased pain and fever in the left perianal area. Reimaging of the. Perianal area was consistent with an abscess that had increased in size. recently been discharged on March 30. At that time the patient was treated for perianal abscess which was positive for E. coli. A PICC line was placed patient did complete outpatient antibiotics and was followed by infectious disease. Patient stated that after completing the antibiotic did start to feel better but noted over the weekend that she was having increased pain in the left perianal area. On April 17 underwent an incision and drainage of the left perirectal abscess with 20 mL. Fluid aspirated. Patient was followed by infectious disease Dr. Francois. Patient could not tolerate the packing to the left. periAnal area. The packing was causing intense pain. Patient tolerated a sitz bath and was taking sitz bath 4 times a day with a noted improvement with decreased pain. On the day of discharge patient was felt to be clinically stable and appropriate proceed with a discharge to home Dr. Francois indicated to the patient that she was to complete the current antibiotic she had at home and seen in the office next week Impression Present on admission fever pain left perianal area likely due to left perianal abscess failed outpatient treatment CAT scan pelvis obtained on April 17 show left perianal abscess slightly increased measuring 3.4 previous 2.7 History of hepatitis C Recent incision and drainage of a left Perianal abscess with a positive wound culture for C. diff Obesity BMI 38 Wound culture shows Kirsty albicans The above impression and plan of care have been discussed and directed by signing physician. Alissa Reid nurse practitioner acting as scribe for signing physician. Patient Condition at Discharge: Stable Plan - Discharge Summary Discharge Rx Participant: No New Discharge Prescriptions: New diphenhydrAMINE [Benadryl] 50 mg PO HS PRN cap PRN Reason: Insomnia Docusate [Colace] 100 mg PO BID cap Fluconazole [Diflucan] 150 mg PO DAILY #7 tab HYDROcodone/APAP 7.5-325MG [Weare 7.5-325] 1 tab PO Q4-6H PRN #20 tab PRN Reason: Mild Pain Continue metroNIDAZOLE [Flagyl] 500 mg PO TID #42 tab Cefuroxime Axetil [Ceftin] 500 mg PO BID Discharge Medication List metroNIDAZOLE [Flagyl] 500 mg PO TID #42 tab 03/30/18 [Rx] Cefuroxime Axetil [Ceftin] 500 mg PO BID 04/17/18 [History] Docusate [Colace] 100 mg PO BID cap 04/21/18 [Rx] Fluconazole [Diflucan] 150 mg PO DAILY #7 tab 04/21/18 [Rx] HYDROcodone/APAP 7.5-325MG [Weare 7.5-325] 1 tab PO Q4-6H PRN #20 tab 04/21/18 [ Rx] diphenhydrAMINE [Benadryl] 50 mg PO HS PRN cap 04/21/18 [Rx] Follow up Appointment(s)/Referral(s): Raudel Cox MD [Primary Care Provider] - (Patient to make self appointment. ) Cayden Francois MD [STAFF PHYSICIAN] - 04/28/18 9:00 am Humza Hernandez MD [STAFF PHYSICIAN] - 04/28/18 2:45 pm Patient Instructions/Handouts: Wound Infection (DC), Sitz Bath (DC) Activity/Diet/Wound Care/Special Instructions: Sitz bath after each bowel movement Sitz bath at least 4 times a day Return to the emergency room if increased pain increased drainage with odor noted from surgical incision site Avoid sitting for long periods of time Avoid constipation use [id number] stool softener Discharge Disposition: HOME SELF-CARE <Nati Plascencia - Last Filed: 04/21/18 21:05> - Discharge Diagnosis(es) (1) Loulou-rectal abscess Status: Acute
--- NOTE | 2018-04-21 13:46 | PN ---
PROGRESS NOTE DATE OF SERVICE: 04/21/2018 REASON FOR FOLLOWUP: Left perirectal abscess. INTERVAL HISTORY: The patient is currently afebrile. She was seen on rounds this morning. Denies having any chest pain, shortness of breath or cough. No abdominal pain. Pain to the left perirectal area is currently controlled. However, the patient says it is hard for her to pack the wound because of the pain. PHYSICAL EXAMINATION: On examination, blood pressure is 104/68 with a pulse of 72, temperature of 98.1. She is 100% on room air. General description is a middle aged female lying in bed in no distress. RESPIRATORY SYSTEM: Unlabored breathing, clear to auscultation anteriorly. HEART: S1, S2. Regular rate and rhythm. ABDOMEN: Soft, no tenderness. Left perirectal wound with no purulent material. Surrounding swelling and induration has improved. No foul smelling drainage. DIAGNOSTIC IMPRESSION AND PLAN: Patient with left perirectal abscess status post drainage. Culture now showing a Kirsty which could be more likely colonized. The previous culture was an Escherichia coli. The patient did have a scripts of Ceftin and Flagyl at home. She will continue to finish a course of therapy with a short course of oral Diflucan. Aquacel Silver packing of the wound and follow up in the office in the one. MMODL / IJN: [id number] /
== END 2018-04-21 11:37 | disposition home health service (06) | DRG 345 ==
LOC: EC 06:50 → 4MS4W 10:13 → OBSVTOIN 04-18 08:29
PROVIDERS: ADMIT Surgery; ATTEND Surgery
PROC: 0D9P0ZZ Drainage of Rectum, Open Approach (ICD-10-PCS; principal; 2018-04-17 10:04)
DX: K61.2 Anorectal abscess (principal); N13.30 Unspecified hydronephrosis; E66.9 Obesity, unspecified; Z68.38 Body mass index [BMI] 38.0-38.9, adult; B18.2 Chronic viral hepatitis C; Z91.14 Patient's other noncompliance with medication regimen; Z87.891 Personal history of nicotine dependence; Z79.2 Long term (current) use of antibiotics; Z98.891 History of uterine scar from previous surgery; Z90.49 Acquired absence of other specified parts of digestive tract; Z88.8 Allergy status to other drugs, medicaments and biological substances; Z91.040 Latex allergy status; Z88.2 Allergy status to sulfonamides
CPT/HCPCS: 36415; 72193; 76770; 80048; 80053; 81025; 83605; 84703; 85025; 87040; 87070; 87075; 87205; 96361; 96374; 96375; 99285

== ENCOUNTER 2019-04-18 07:32 | Day surgery (SDC) | payer OTHER ==
[2019-04-13 14:37] VITALS: BMI 41.0
[~2019-04-18 07:32] MED LIST: LACTATED RINGERS 1,000 ML IV SCH; LIDOCAINE 1% 20 ML VIAL (10MG/ML) FOR IV START INTRADERMA PRN
[2019-04-18 08:04] VITALS: RESP 16; TEMP 96.5
[2019-04-18] MEDS ORDERED: PROPOFOL 10 MG/ML 20 ML VIAL IV ONE (08:45)
[2019-04-18] MEDS ORDERED: LIDOCAINE 1% INJ 10MG/ML (20 ML MDV) ONE (08:45)
--- NOTE | 2019-04-18 08:59 | P.GSHP ---
History of Present Illness H&P Date: 04/18/19 Chief Complaint: Rectal bleeding This a 38-year-old female has complaints of rectal bleeding. Patient presents today for colonoscopy. Past Medical History Past Medical History: Asthma, GI Bleed, Liver Disease Additional Past Medical History / Comment(s): Hepatitis C, hx perianal abscess History of Any Multi-Drug Resistant Organisms: None Reported Past Surgical History: Section, Cholecystectomy, Tubal Ligation Past Anesthesia/Blood Transfusion Reactions: No Reported Reaction, Family History of Problems w/ Anesthesia Additional Past Anesthesia/Blood Transfusion Reaction / Comment(s): mother has had unknown issues with anesthesia Smoking Status: Former smoker - Past Family History Father Family Medical History: Eye Disorder Medications and Allergies Home Medications Medication Instructions Recorded Confirmed Type Albuterol Inhaler [Ventolin Hfa 1 - 2 puff INHALATION RT-Q6H PRN 04/13/19 04/18/19 History Inhaler] Phentermine HCl [Adipex-P] 37.5 mg PO DAILY 04/13/19 04/18/19 History Allergies Allergy/AdvReac Type Severity Reaction Status Date / Time ibuprofen [From Motrin] Allergy Severe Anaphylaxis Verified 04/18/19 08:02 Sulfa (Sulfonamide Allergy Severe Dyspnea Verified 04/18/19 08:02 Antibiotics) latex Allergy Intermediate Rash/Hives Verified 04/18/19 08:02 Surgical - Exam Vital Signs Temp Pulse Resp BP Pulse Ox 96.5 F L 93 16 138/82 99 04/18/19 08:02 04/18/19 08:02 04/18/19 08:02 04/18/19 08:02 04/18/19 08:02 - General well developed, well nourished, no distress - Eyes PERRL - ENT normal pinna - Neck no masses - Respiratory normal expansion - Cardiovascular Rhythm: regular - Abdomen Abdomen: soft, non tender Results - Labs 04/18/19 08:15 Abnormal Lab Results - Last 24 Hours (Table) 04/18/19 Range/Units 08:15 Glucose 105 H (74-99) mg/dL Diabetes panel 04/18/19 Range/Units 08:15 Glucose 105 H (74-99) mg/dL Pituitary panel 04/18/19 Range/Units 08:15 Glucose 105 H (74-99) mg/dL Adrenal panel 04/18/19 Range/Units 08:15 Glucose 105 H (74-99) mg/dL Assessment and Plan Assessment: Rectal bleeding. We'll perform colonoscopy.
[2019-04-18 09:04] LABS: T4, Free (Free Thyroxine) 1.06 ng/dL (0.78-2.19)
--- NOTE | 2019-04-18 09:09 | P.OP ---
Date of Procedure: 04/18/19 Preoperative Diagnosis: GI bleed Postoperative Diagnosis: Internal hemorrhoids Rectal biopsy pathology pending Procedure(s) Performed: Colonoscopy Anesthesia: MAC Surgeon: Humza Hernandez Pathology: other (Rectal biopsy) Condition: stable Disposition: PACU Description of Procedure: The patient's placed on the endoscopy table in the lateral position. She received IV sedation. Digital rectal exam was performed which revealed internal hemorrhoids. The flexible colonoscope was then placed patient anus passed throughout the entire colon. The ileocecal valve was visualized. The cecum, ascending and transverse colon appeared normal. The descending and sigmoid colon appeared normal. The scope was then brought back the rectum and there appeared to be some minimal inflammation. A biopsies performed. The scope was withdrawn and the internal hemorrhoids noted. Scope was withdrawn for patient.
[2019-04-18 09:48] VITALS: BP 118/69; PULSE 79
== END 2019-04-18 10:01 | disposition home or self-care (01) ==
LOC: ORWHC2ENDO 07:32
PROVIDERS: ATTEND Surgery
DX: K62.89 Other specified diseases of anus and rectum (principal); K64.8 Other hemorrhoids; J45.909 Unspecified asthma, uncomplicated; Z86.19 Personal history of other infectious and parasitic diseases; Z90.49 Acquired absence of other specified parts of digestive tract; Z87.891 Personal history of nicotine dependence; Z79.899 Other long term (current) drug therapy; Z88.2 Allergy status to sulfonamides; Z88.6 Allergy status to analgesic agent; Z91.040 Latex allergy status; Z98.51 Tubal ligation status
CPT/HCPCS: 81025; 84439; 88305; 82607; 82947; 84443; 45380; J2001; J2704

== ENCOUNTER → 2025-05-21 | Outpatient (CLI) | payer OTHER ==
[2025-05-21 20:12] LABS: Alpha Fetoprotein, Tumor Mkr 11.90 ng/mL (0.00-7.90); Hepatitis B Surface Antigen Nonreactive (Nonreactive); Hepatitis C IgG Antibody Reactive (Nonreactive)
[2025-05-21 20:13] LABS: ALT 262 U/L (8-44); AST 228 U/L (13-35); Albumin 4.4 g/dL (3.8-4.9); Albumin/Globulin Ratio 1.76 Ratio (1.60-3.17); Alkaline Phosphatase 95 U/L (41-126); Anion Gap 14.10 mmol/L (4.00-12.00); BUN/Creat Ratio 7.86 Ratio (12.00-20.00); Bilirubin,Unconjugated 0.31 mg/dL (0.20-1.00); Blood Urea Nitrogen 5.5 mg/dL (9.0-27.0); Calcium 9.6 mg/dL (8.7-10.3); Carbon Dioxide 24.9 mmol/L (21.6-31.8); Chloride 100 mmol/L (96-109); Globulin 2.5 g/dL (1.6-3.3); Glucose 98 mg/dL (70-110); Potassium 4.5 mmol/L (3.5-5.5); Sodium 139 mmol/L (135-145); Total Protein 6.9 g/dL (6.2-8.2)
[2025-05-22 02:18] LABS: Basophils # (A) 0.07 X 10*3/uL (0.00-0.10); Basophils % (A) 1.1 %; Eosinophils # (A) 0.15 X 10*3/uL (0.04-0.35); Eosinophils % (A) 2.4 %; HCT 45.3 % (37.2-46.3); HGB 15.7 g/dL (12.0-15.0); Immature Grans, Automated 0.30 %; Lymphocytes # (A) 1.80 X 10*3/uL (0.90-5.00); Lymphocytes % (A) 29.3 %; MCH 36.0 pg (27.0-32.0); MCHC 34.7 g/dL (32.0-37.0); MCV 103.9 FL (80.0-97.0); Monocytes # (A) 0.44 X 10*3/uL (0.20-1.00); Monocytes % (A) 7.2 %; NRBC Per 100 WBC 0 X 10*3/uL (0.00-0.01); Neutrophils # (A) 3.67 X 10*3/uL (1.80-7.70); Neutrophils % (A) 59.7 %; Platelet Count 233 X 10*3/uL (140-440); RBC 4.36 X 10*6/uL (4.10-5.20); RDW 12.1 % (11.5-14.5); WBC 6.15 X 10*3/uL (4.50-10.00)
== END | disposition home or self-care (01) ==
LOC: LABWHC1 14:59
DX: B18.2 Chronic viral hepatitis C (principal)
CPT/HCPCS: 36415; 80053; 82105; 82248; 85025; 86704; 86803; 87340

== ENCOUNTER → 2025-05-23 | Outpatient (CLI) | payer OTHER ==
--- NOTE | 2025-05-23 11:33 | US ---
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 FINDINGS: EXAM MEASUREMENTS: Liver Length: 21.7 cm. Normal is 15.5 cm. Gallbladder Wall: Surgically absent CBD: .5 cm Right Kidney: 12.5 x 3.9 x 5.2 cm RANGE MANAGEMENT SPECIALIST NOTES: Pancreas: Obscured by bowel gas Liver: Increased attenuation no masses identified. Gallbladder: Surgically absent Evidence for sonographic Waters's sign: No CBD: wnl Right Kidney: No hydronephrosis or masses seen IMPRESSION: Hepatomegaly with mild fatty infiltration of the liver. [facility] Briseida Boyd, Workstation: [facility], 05/23/2025 11:30 AM
== END | disposition home or self-care (01) ==
LOC: RADUSWWP 09:42
PROVIDERS: ATTEND Internal Medicine Gastroenterology
DX: B18.2 Chronic viral hepatitis C (principal); K76.0 Fatty (change of) liver, not elsewhere classified; R16.0 Hepatomegaly, not elsewhere classified
CPT/HCPCS: 76705